=== PATIENT | female | born 1925 | race Caucasian/White ===

== ENCOUNTER 2016-09-12 13:45 | Inpatient (IN) | payer OTHER, BC ==
[2016-09-12] MEDS ORDERED: IPRATROPIUM/ALBUTEROL 3 ML DEYVIAL IH ONE (13:56)
--- NOTE | 2016-09-12 13:57 | EDPHY ---
H & P Time Seen by Provider: 09/12/16 13:46 HPI/ROS: CHIEF COMPLAINT: Weakness HISTORY OF PRESENT ILLNESS: Patient arrives from [facility] by EMS with a chief complaint of increasing weakness today. Symptoms moderate to severe and difficulty walking or standing. She is says this is associated with a diffuse headache which is unusual for her. Not thunderclap in onset or worst of life. Not associated with visual symptoms or neck pain or recent trauma. Weakness is not focal. REVIEW OF SYSTEMS: Eye: no change in vision ENT: no sore throat Cardiac: no chest pain or syncope Pulmonary: no cough or SOB Abdomen: no vomiting, diarrhea, abdominal pain Musculoskeletal: no back pain Skin: no rash Neuro: As in HPI Constitutional: no fever : no urinary symptoms A comprehensive 10 point review of systems is otherwise negative aside from elements mentioned in the history of present illness. PAST MEDICAL HISTORY: History and physical dated 12/10/2015 reviewed by myself. Includes rheumatoid arthritis on Remicade, IVC thrombus, depression, urinary retention, asthma, mild dementia. Right total knee arthroplasty, left total hip arthroplasty. Social history: No smoking or alcohol General Appearance: Alert and conversant, cooperative. Eyes: No scleral icterus. ENT, Mouth: Normal mucous membranes. No external evidence of head or neck swelling, but normal range of motion of the neck without meningeal signs. Respiratory: Slight expiratory wheezing but speaks in full sentences, no focal lung sounds. Cardiovascular: Regular rate and rhythm. Gastrointestinal: Abdomen is soft and non tender. Neurological: Alert and oriented x3. Normally conversant. Face symmetric, normal movement and sensation in all extremities. She can lift each leg independently off the bed and has good sales person strength bilaterally. Skin: Warm and dry, no rashes. Musculoskeletal: No peripheral edema and no joint swelling. No calf tenderness but she has significant ulnar deviation in both hands from her arthritis. Psychiatric: Not agitated. Emergency Department course/MDM: Chest x-ray, nebulizer, head CT, labs and EKG, urinalysis. Patient was offered medication for her headache but she declined. 1535: Results discussed with the patient, blood pressure 182/127. Nicardipine drip ordered with goal systolic 140-160 after discussion with admitting neurosurgeon Dr. Hudson 1700: 176/87 on nicardipine, seen by Neurosurgery in the emergency department, still awake and talking. Smoking Status: Former smoker Constitutional: Initial Vital Signs Temperature (C) 36.6 C 09/12/16 13:56 Heart Rate 91 09/12/16 13:56 Respiratory Rate 17 09/12/16 13:56 Blood Pressure 201/118 H 09/12/16 13:56 O2 Sat (%) 94 09/12/16 13:56 O2 Delivery Mode Room Air Allergies/Adverse Reactions: latex Allergy (Verified 12/10/15 13:59) mirtazapine Allergy (Verified 12/10/15 13:59) naproxen [From Naprosyn] Allergy (Verified 12/10/15 13:59) penicillin V potassium [From Pen-Vee K] Allergy (Verified 12/10/15 13:59) Rash Penicillins Allergy (Verified 12/31/15 14:11) potassium [From Potassimin] Allergy (Verified 12/31/15 14:11) shellfish derived Allergy (Verified 12/10/15 13:59) Home Medications: Medication Instructions Recorded Albuterol Sulfate [PROVENTIL HFA] 1 - 2 puffs IH Q4H PRN 04/19/15 Cyanocobalamin [Vitamin B12 (*)] 500 mcg PO DAILY@12 04/19/15 Methotrexate Sodium [Rheumatrex] 12.5 mg PO Q7D 04/19/15 Rivastigmine Tartrate [Exelon] 6 mg PO BID 04/19/15 Tramadol HCl 50 - 100 mg PO BID PRN 04/19/15 inFLIXimab [Remicade Inj 100 mg 100 mg IV .[id number] 04/19/15 (*)] Cholecalciferol Vit D3 [Vitamin D3 1,000 units PO HS 11/02/15 (*)] Docusate Sodium [Colace 100 MG (*)] 100 mg PO HS PRN 11/02/15 Acetaminophen [Tylenol ES 500 mg 1,000 mg PO Q8 #0 tab 11/06/15 (*)] Propylene Glycol/Peg 400 [SYSTANE 1 drop EACHEYE Q4 PRN 12/10/15 0.3-0.4% EYE DROPS] Herbals/Supplements -Info Only 1 ea PO DAILY 09/12/16 Esopus-3 Fatty Acids [Fish Oil 1000 1,000 mg PO DAILY 09/12/16 mg (*)] Medical Decision Making - Diagnostics EKG Interpretation: 12-lead EKG interpreted by me; official reading is in trace master. My interpretation is sinus rhythm rate 79 with borderline left axis. Imaging: Chest x-ray personally reviewed and interpreted by myself does not show infiltrate or CHF. CT head personally reviewed and interpreted discussed with Dr. Andres 1526 shows acute left frontal intracranial hemorrhage. Differential Diagnosis: Differential diagnosis considered for weakness including but not limited to electrolyte abnormality, urinary tract infection, CVA, intracranial bleed or mass, anemia, and infectious causes. Critical Care Time: Critical care time spent by me, Dr. Benson, exclusively with the care of this patient was 30 minutes, exclusive of PA or EDISCOVERY PROJECT MANAGER time and exclusive of separate procedures. The organ system at risk was neurologic and I ordered multiple diagnostic studies, discussion with admitting neurosurgeon, intravenous nicardipine for hypertension control to stabilize the patient and prevent worsening of the patient's condition. - Data Points Laboratory Results: Laboratory Results 09/12/16 13:49 09/12/16 13:49 09/12/16 09/12/16 09/12/16 14:25 13:49 13:49 WBC RBC Hgb Hct MCV MCH MCHC RDW Plt Count MPV Neut % (Auto) Lymph % (Auto) [place] % (Auto) Eos % (Auto) Baso % (Auto) Nucleat RBC Rel Count Absolute Neuts (auto) Absolute Lymphs (auto) Absolute Monos (auto) Absolute Eos (auto) Absolute Basos (auto) Absolute Nucleated RBC Immature Gran % Immature Gran # D-Dimer 4.24 ug/mLFEU H ug/mLFEU (0.00-0.50) Sodium 136 mEq/L mEq/L (134-144) Potassium 4.2 mEq/L mEq/L (3.5-5.2) Chloride 103 mEq/L mEq/L (97-110) Carbon Dioxide 23 mEq/l mEq/l (22-31) Anion Gap 10 mEq/L mEq/L (8-16) BUN 32 mg/dL H mg/dL (7-23) Creatinine 0.9 mg/dL mg/dL (0.6-1.0) Estimated GFR 59 Glucose 112 mg/dL H mg/dL (70-100) Calcium 9.5 mg/dL mg/dL (8.5-10.4) Troponin I < 0.012 ng/mL ng/mL (0-0.034) Urine Color PALE YELLOW Urine Appearance CLEAR Urine pH 7.0 (5.0-7.5) Ur Specific [place] 1.008 (1.002-1.030) Urine Protein NEGATIVE (NEGATIVE) Urine Ketones TRACE H (NEGATIVE) Urine Blood 1+ H (NEGATIVE) Urine Nitrate NEGATIVE (NEGATIVE) Urine Bilirubin NEGATIVE (NEGATIVE) Urine Urobilinogen NEGATIVE EU EU (0.2-1.0) Ur Leukocyte Esterase NEGATIVE (NEGATIVE) Urine RBC 1-3 /hpf /hpf (0-3) Urine WBC 1-3 /hpf /hpf (0-3) Ur Epithelial Cells TRACE /lpf /lpf (NONE-1+) Ur Culture Indicated? NOT INDICATED (NI) Urine Glucose NEGATIVE (NEGATIVE) 09/12/16 13:49 WBC 7.69 10^3/uL 10^3/uL (3.80-9.50) RBC 4.39 10^6/uL 10^6/uL (4.18-5.33) Hgb 13.3 g/dL g/dL (12.6-16.3) Hct 40.6 % % (38.0-47.0) MCV 92.5 fL fL (81.5-99.8) MCH 30.3 pg pg (27.9-34.1) MCHC 32.8 g/dL g/dL (32.4-36.7) RDW 14.6 % % (11.5-15.2) Plt Count 205 10^3/uL 10^3/uL (150-400) MPV 10.3 fL fL (8.7-11.7) Neut % (Auto) 77.2 % H % (39.3-74.2) Lymph % (Auto) 16.3 % % (15.0-45.0) [place] % (Auto) 5.6 % % (4.5-13.0) Eos % (Auto) 0.1 % L % (0.6-7.6) Baso % (Auto) 0.5 % % (0.3-1.7) Nucleat RBC Rel Count 0.0 % % (0.0-0.2) Absolute Neuts (auto) 5.94 10^3/uL 10^3/uL (1.70-6.50) Absolute Lymphs (auto) 1.25 10^3/uL 10^3/uL (1.00-3.00) Absolute Monos (auto) 0.43 10^3/uL 10^3/uL (0.30-0.80) Absolute Eos (auto) 0.01 10^3/uL L 10^3/uL (0.03-0.40) Absolute Basos (auto) 0.04 10^3/uL 10^3/uL (0.02-0.10) Absolute Nucleated RBC 0.00 10^3/uL 10^3/uL (0-0.01) Immature Gran % 0.3 % % (0.0-1.1) Immature Gran # 0.02 10^3/uL 10^3/uL (0.00-0.10) D-Dimer Sodium Potassium Chloride Carbon Dioxide Anion Gap BUN Creatinine Estimated GFR Glucose Calcium Troponin I Urine Color Urine Appearance Urine pH Ur Specific [place] Urine Protein Urine Ketones Urine Blood Urine Nitrate Urine Bilirubin Urine Urobilinogen Ur Leukocyte Esterase Urine RBC Urine WBC Ur Epithelial Cells Ur Culture Indicated? Urine Glucose Medications Given: Discontinued Medications Albuterol/Ipratropium (Duoneb) 3 ml IH EDNOW ONE Stop: 09/12/16 13:57 Last Admin: 09/12/16 14:13 Dose: 3 ml Nicardipine/Sodium Chloride (Cardene 0.1 Mg/Ml (Premix)) 200 mls @ 0 mls/hr IV EDNOW ONE; Titrate PRN Reason: Protocol Stop: 09/12/16 15:43 Last Admin: 09/12/16 16:53 Dose: 200 mls Departure - Departure Disposition: [facility] Clinical Impression: Frontal intracranial hemorrhage Condition: Serious
[2016-09-12 14:05] LABS: % IMMATURE GRANULYOCYTES 0.3 % (0.0-1.1); ABSOLUTE IMMATURE GRANULOCYTES 0.02 10^3/uL (0.00-0.10); ADD DIFF? NO; ADD MORPH? NO; ADD SCAN? NO; ATYPICAL LYMPHOCYTE FLAG 10 (0-99); FRAGMENT RBC FLAG 0 (0-99); HEMATOCRIT 40.6 % (38.0-47.0); HEMOGLOBIN 13.3 g/dL (12.6-16.3); LEFT SHIFT FLG 0 (0-99); LIPEMIA HEMOLYSIS FLAG 80 (0-99); MEAN CELL HEMOGLOBIN 30.3 pg (27.9-34.1); MEAN CELL HEMOGLOBIN CONCENTR. 32.8 g/dL (32.4-36.7); MEAN CELL VOLUME 92.5 fL (81.5-99.8); MEAN PLATELET VOLUME 10.3 fL (8.7-11.7); PLATELET CLUMPS FLAG 0 (0-99); PLATELET COUNT 205 10^3/uL (150-400); RED BLOOD CELL COUNT 4.39 10^6/uL (4.18-5.33); RED CELL DISTRIBUTION WIDTH 14.6 % (11.5-15.2)
[2016-09-12 14:19] LABS: ANION GAP 10 mEq/L (8-16); CALCIUM 9.5 mg/dL (8.5-10.4); CARBON DIOXIDE 23 mEq/l (22-31); CHLORIDE 103 mEq/L (97-110); CREATININE 0.9 mg/dL (0.6-1.0); GLOMERULAR FILTRATION RATE 59; GLUCOSE 112 mg/dL (70-100); POTASSIUM 4.2 mEq/L (3.5-5.2); SODIUM 136 mEq/L (134-144)
[2016-09-12 14:29] LABS: TROPONIN I < 0.012 ng/mL (0-0.034)
[2016-09-12 14:35] LABS: COLOR PALE YELLOW; LEUKOCYTE ESTERASE,URINE NEGATIVE (NEGATIVE); NITRITE,URINE NEGATIVE (NEGATIVE)
--- NOTE | 2016-09-12 15:16 | CPEKG ---
Heart Rate: 79 RR Interval: 759 P-R Interval: 156 QRSD Interval: 98 QT Interval: 408 QTC Interval: 468 P Stewart: 62 QRS Stewart: -23 T Wave Stewart: 42 EKG Severity - OTHERWISE NORMAL ECG - EKG Impression: SINUS RHYTHM EKG Impression: BORDERLINE LEFT AXIS DEVIATION Electronically Signed By: Jose Roberto Benson 12-Sep-2016 16:10:33
[2016-09-12] MEDS ORDERED: niCARdipine/NACL 200 ML IV ONE (15:42)
[2016-09-12] MEDS ORDERED: NS 1,000 ML IV SCH (16:30)
[2016-09-12] MEDS ORDERED: niCARdipine/NACL 200 ML IV SCH (16:30)
--- NOTE | 2016-09-12 16:33 | GHP ---
[f rep st] HISTORY AND PHYSICAL DATE OF ADMISSION: 09/12/2016 CHIEF COMPLAINT: Headache. HISTORY OF PRESENT ILLNESS: The patient is an 89-year-old female with a past medical history signif icant for rheumatoid arthritis. She just was not quite feeling well this morning and presented to [facility] emergency department with a generalized headache. A head CT was obtained and this showed a right frontal intracerebral hemorrhage. Neurosurgical consultation was requested. She currently complai ns of a headache. This is associated with some mild nausea. She has not had any vomiting, weakness , bowel or bladder problems, or ataxia. PAST MEDICAL HISTORY: 1. Rheumatoid arthritis. 2. Reactive airway disease. MEDICATIONS: Prior to admission are methotrexate, Remicade, tramadol, Exelon, albuterol inhaler, an d [id number] supplements. ALLERGIES: Penicillin which causes a rash as a child. FAMILY HISTORY: The patient has no family history of an intracranial hemorrhage. SOCIAL HISTORY: The patient is , with 4 grown children. She is a former smoker but does not drink and does not use recreational drugs. REVIEW OF SYSTEMS: Negative. PHYSICAL EXAM: GENERAL: Patient is an 89-year-old female lying in bed, in no apparent distress. H EAD, EYES, EARS, NOSE, AND THROAT: Negative to drainage. EXTREMITIES: Friendly, warm, and dry. NEURO LOGIC: Patient is awake, alert, oriented x4. Pupils equal, round, reactive to light. Extraocular motions are intact. There is no evidence of facial droop. Tongue and uvula are midline. Spinal ac cess muscles are intact. Her motor strength is 5/5 in her arms and legs. Her sensation is grossly intact to light touch in her arms and legs. Deep tendon reflexes are 1+ out of 4 in the bilateral b iceps, triceps, brachioradialis, patellar, and Achilles. There is a negative Nadia with no clonu s. DIAGNOSTIC STUDIES: A head CT without contrast shows a small left frontal intraparenchymal hemorrha ge which measures approximately 1.5 cm. This is on the cortical surface of the left frontal lobe. There is no evidence of extra-axial fluid collections. There is no evidence of hydrocephalus. IMPRESSION: This is an 89-year-old female admitted with a headache, who has a left frontal intra-ax ial hemorrhage. She is neurologically stable. PLAN: All the above discussed in detail with the patient and her son. This patient was seen by Dr. Almanza in the emergency department. At this point in time, she will be admitted to the ICU for observation. We will put her on Cardene to keep her systolic blood pressure below 160. We will have her work with Physical Therapy and Occupational Therapy. The patient will undergo a repeat he ad CT without contrast in the morning. Please call with any neurological changes. /[id number]/MODL
[2016-09-12] MEDS ORDERED: traMADol 50 MG TAB PO PRN (18:03)
[2016-09-12] MEDS ORDERED: DOCUSATE SODIUM 100 MG CAP PO PRN (18:03)
[2016-09-12] MEDS ORDERED: TEARS/DEXTRAN 70/HYPROMELLOSE 15 ML OPHT.BTL EACHEYE PRN (18:12)
[2016-09-12] MEDS ORDERED: ALBUTEROL 60 PUFFS/8 GM MDI IH PRN (18:15)
[2016-09-12] MEDS ORDERED: METHOTREXATE 2.5 MG TAB PO SCH (18:30)
[2016-09-12 19:53] VITALS: TEMP 97.9
[2016-09-12] MEDS ORDERED: CHOLECALCIFEROL VIT D3 1,000 UNITS TAB PO SCH (21:00)
[2016-09-13 06:13] LABS: % IMMATURE GRANULYOCYTES 0.2 % (0.0-1.1); ABSOLUTE IMMATURE GRANULOCYTES 0.01 10^3/uL (0.00-0.10); ADD DIFF? NO; ADD MORPH? NO; ADD SCAN? NO; ATYPICAL LYMPHOCYTE FLAG 10 (0-99); FRAGMENT RBC FLAG 0 (0-99); HEMATOCRIT 40.9 % (38.0-47.0); HEMOGLOBIN 13.6 g/dL (12.6-16.3); LEFT SHIFT FLG 0 (0-99); LIPEMIA HEMOLYSIS FLAG 80 (0-99); MEAN CELL HEMOGLOBIN 30.2 pg (27.9-34.1); MEAN CELL HEMOGLOBIN CONCENTR. 33.3 g/dL (32.4-36.7); MEAN CELL VOLUME 90.9 fL (81.5-99.8); MEAN PLATELET VOLUME 9.9 fL (8.7-11.7); PLATELET CLUMPS FLAG 0 (0-99); PLATELET COUNT 196 10^3/uL (150-400); RED CELL DISTRIBUTION WIDTH 14.5 % (11.5-15.2)
[2016-09-13 06:16] LABS: ANION GAP 9 mEq/L (8-16); CARBON DIOXIDE 25 mEq/l (22-31); CHLORIDE 106 mEq/L (97-110); CREATININE 0.7 mg/dL (0.6-1.0); GLOMERULAR FILTRATION RATE > 60; GLUCOSE 83 mg/dL (70-100); POTASSIUM 4.4 mEq/L (3.5-5.2); SODIUM 140 mEq/L (134-144)
[2016-09-13 08:17] VITALS: BP 118/72; PULSE 87; RESP 15; O2SAT 92
--- NOTE | 2016-09-13 09:06 | NEUSURGPN ---
Assessment/Plan: A: 89 yo F admitted with 1.5cm left frontal ICH Plan: -Neuro intact, stable -PT/OT/FRUIT PICKER -CT head done this AM and appears table, report pending -OK to transfer to floor/back to SNF -Needs outpatient f/u in [address] Mendez with repeat HCT -D/w Dr Mendez -Call NS with any issues Subjective: Pt resting in bed, c/o slight headache. Objective: AAOx3 NAD EOMi No droop MAEx4 Motor 5/5 BUE/BLE +LT Neurosurgery Physical Exam - Vitals, I&O, Labs I and O 09/12/16 09/13/16 09/14/16 05:59 05:59 05:59 Intake Total 294 Output Total 2275 Balance -1981 Weight 59.4 kg Intake: Oral (ml) 250 IV Infused (ml) 44 niCARdipine/NACL 200 ml @ 44 Titrate IV CONT MARIBEL Rx#: [id number] Output: Urine (ml) 2275 Bedpan 1325 Other: Intake Quantity Yes Sufficient Number of Voids Bedpan 1 Vital Signs Temp Pulse Resp BP Pulse Ox 36.6 C 87 15 118/72 92 09/12/16 19:50 09/13/16 08:00 09/13/16 08:00 09/13/16 08:00 09/13/16 08:00 Laboratory Results 09/13/16 05:50 09/13/16 05:50 ICD10 Worksheet Patient Problems: Problems Problem Status Onset Acute pancreatitis Acute Elevated troponin Acute Intertrochanteric fracture of left hip Acute Nausea & vomiting Acute Syncope Acute
[2016-09-13] MEDS ORDERED: CYANO/VITAMIN B12 1000 MCG TAB PO SCH (12:00)
--- NOTE | 2016-09-13 16:06 | PDIAF ---
- Diagnosis Code Status: Full Code - Medication Management Discharge Medications: Medications to Continue on Transfer Albuterol Sulfate [PROVENTIL HFA] 1 - 2 puffs IH Q4H PRN 04/19/15 [Last Taken Unknown] Cyanocobalamin [Vitamin B12 (*)] 500 mcg PO DAILY@12 04/19/15 [Last Taken ] Methotrexate Sodium [Rheumatrex] 12.5 mg PO Q7D 04/19/15 [Last Taken 09/05/16] Rivastigmine Tartrate [Exelon] 6 mg PO BID 04/19/15 [Last Taken 09/12/16 09:00] Tramadol HCl 50 - 100 mg PO BID PRN 04/19/15 [Last Taken 09/12/16 09:00] inFLIXimab [Remicade Inj 100 mg (*)] 100 mg IV .[id number] 04/19/15 [Last Taken 12/21] Cholecalciferol Vit D3 [Vitamin D3 (*)] 1,000 units PO HS 11/02/15 [Last Taken 12/10/15] Docusate Sodium [Colace 100 MG (*)] 100 mg PO HS PRN 11/02/15 [Last Taken Unknown] Acetaminophen [Tylenol ES 500 mg (*)] 1,000 mg PO Q8 #0 tab 11/06/15 [Last Taken Unknown] Propylene Glycol/Peg 400 [SYSTANE 0.3-0.4% EYE DROPS] 1 drop EACHEYE Q4 PRN 11/19 [Last Taken Unknown] Herbals/Supplements -Info Only 1 ea PO DAILY 09/12/16 [Last Taken Unknown] Discharge Medications: Refer to the Discharge Home Medication list for PRN reason. - Orders Services needed: Home Care, Physical Therapy, Occupational Therapy Home Care Face to Face: I certify that this patient was under my care and that I had the required [id number] encounter meeting the encounter requirements on the discharge day. My findings support the fact that the patient is homebound as defined in CMS Chapter 7 Medicare Benefits Manual 30.1.1, The condition of the patient is such that there exists a normal inability to leave home and consequently, leaving home would require a considerable and taxing effort. Diet Recommendation: no restrictions on diet Diet Texture: Regular Texture Diet [place]: Not applicable - Follow Up Care Current Providers and Referrals: Patient,NotPresent [Unknown] - As per Instructions Juancarlos Almanza MD [Medical Doctor] - (Follow up in 1 week with repeat HCT)
[2016-11-09] MEDS ORDERED: INFLIXIMAB 100 MG IV SCH (09:00)
== END 2016-09-13 11:49 | disposition home or self-care (01) | DRG 66 ==
LOC: EDUNIT# → F2N 17:12
PROVIDERS: ADMIT Neurological Surgery; ATTEND Neurological Surgery
DX: I61.1 Nontraumatic intracerebral hemorrhage in hemisphere, cortical (principal); M06.9 Rheumatoid arthritis, unspecified; Z79.899 Other long term (current) drug therapy; J45.909 Unspecified asthma, uncomplicated; Z96.651 Presence of right artificial knee joint; Z96.642 Presence of left artificial hip joint; Z87.891 Personal history of nicotine dependence
CPT/HCPCS: 97161-GP; 97165-GO; G8978-GP-CI; G8979-GP-CI; G8980-GP-CI; G8987-GO-CI; G8988-GO-CI; G8989-GO-CI

== ENCOUNTER → 2016-09-18 | Outpatient (CLI) | payer OTHER, BC | LOC: CIMAGING 11:14 | PROVIDERS: ATTEND Physician Assistant Surgical | DX: I61.8 Other nontraumatic intracerebral hemorrhage (principal) | CPT/HCPCS: 70450-PO ==

== ENCOUNTER 2016-10-07 02:11 | Emergency (ER) | payer OTHER, BC ==
[2016-10-07 02:25] VITALS: RESP 16; TEMP 98.1
[2016-10-07 03:26] LABS: % IMMATURE GRANULYOCYTES 0.3 % (0.0-1.1); ABSOLUTE IMMATURE GRANULOCYTES 0.02 10^3/uL (0.00-0.10); ADD DIFF? NO; ADD MORPH? NO; ADD SCAN? NO; ATYPICAL LYMPHOCYTE FLAG 10 (0-99); FRAGMENT RBC FLAG 0 (0-99); HEMATOCRIT 42.7 % (38.0-47.0); LEFT SHIFT FLG 0 (0-99); LIPEMIA HEMOLYSIS FLAG 80 (0-99); MEAN CELL HEMOGLOBIN 30.6 pg (27.9-34.1); MEAN CELL HEMOGLOBIN CONCENTR. 32.8 g/dL (32.4-36.7); MEAN CELL VOLUME 93.4 fL (81.5-99.8); MEAN PLATELET VOLUME 10.8 fL (8.7-11.7); PLATELET CLUMPS FLAG 10 (0-99); PLATELET COUNT 186 10^3/uL (150-400); RED BLOOD CELL COUNT 4.57 10^6/uL (4.18-5.33); RED CELL DISTRIBUTION WIDTH 14.6 % (11.5-15.2)
[2016-10-07 03:29] LABS: COLOR PALE YELLOW; LEUKOCYTE ESTERASE,URINE NEGATIVE (NEGATIVE); NITRITE,URINE NEGATIVE (NEGATIVE)
[2016-10-07 03:38] LABS: ALANINE AMINOTRANSFERASE 31 IU/L (9-52); ALBUMIN 3.9 g/dL (3.5-5.0); ALKALINE PHOSPHATASE 62 IU/L (38-126); ANION GAP 10 mEq/L (8-16); ASPARTATE AMINOTRANSFERASE 38 IU/L (14-46); CALCIUM 9.2 mg/dL (8.5-10.4); CARBON DIOXIDE 21 mEq/l (22-31); CHLORIDE 105 mEq/L (97-110); CREATININE 0.8 mg/dL (0.6-1.0); GLOMERULAR FILTRATION RATE > 60; GLUCOSE 98 mg/dL (70-100); POTASSIUM 4.1 mEq/L (3.5-5.2); SODIUM 136 mEq/L (134-144); TOTAL PROTEIN 7.6 g/dL (6.3-8.2)
--- NOTE | 2016-10-07 04:44 | EDPHY ---
H & P Stated Complaint: HEADACHE AND WEAKNESS TONIGHT Time Seen by Provider: 10/07/16 02:14 HPI/ROS: HPI The patient presents with headache which began earlier this evening a few hours ago. It is frontal, achy in nature, does not radiate, is moderate in severity. It is associated with nausea without any vomiting. It feels like the headache that she had that brought her into the hospital with an intracranial hemorrhage on September 12. She denies any recent trauma, vomiting. She did have an elevated blood pressure tonight which is unusual for her. Her blood pressures have been normal since she left the hospital. She is brought in by ambulance. REVIEW OF SYSTEMS Constitutional: No fever, no chills. Eyes: No discharge. ENT: No sore throat. Cardiovascular: No chest pain, no palpitations. Respiratory: No cough, no shortness of breath. Gastrointestinal: No abdominal pain, no vomiting. Genitourinary: No hematuria. Musculoskeletal: No back pain. Skin: No rashes. Neurological: +headache. PMHx: Intracranial hemorrhage, rheumatoid arthritis Soc Hx: [facility] General Appearance: Alert, no distress Eyes: Pupils equal and round no pallor or injection ENT, Mouth: Mucous membranes moist Respiratory: There are no retractions, lungs are clear to auscultation Cardiovascular: Regular rate and rhythm Gastrointestinal: Abdomen is soft and non-tender, no masses, bowel sounds normal Neurological: A&O, cranial nerves 2-12 intact, 5/5 strength in upper and lower extremities which is symmetric Skin: Warm and dry, no rashes Musculoskeletal: Neck is supple non tender Extremities: symmetrical, full range of motion Psychiatric: Patient is oriented X 3, there is no agitation Source: Patient Exam Limitations: No limitations - Personal History Current Tetanus/Diphtheria Vaccine: Yes Current Tetanus Diphtheria and Acellular Pertussis (TDAP): Yes - Medical/Surgical History Hx Asthma: Yes Hx Chronic Respiratory Disease: No Hx Diabetes: No Hx Cardiac Disease: No Hx Renal Disease: No Hx Cirrhosis: No Hx Alcoholism: No Hx HIV/AIDS: No Hx Splenectomy or Spleen Trauma: No Other PMH: Chondrocalcinosis, Depression, Osteoporosis, Arthritis, Urinary Retention, Inguinal Hernia, Constipation, Asthma, PANCREATITIS, FX LEFT ELBOW, RHEUMATOID, UTIs, L ankle fx, r knee hardware, broken left hip 10/2015, TIA 2016 - Social History Smoking Status: Former smoker Constitutional: Initial Vital Signs Temperature (C) 36.7 C 10/07/16 02:15 Heart Rate 70 10/07/16 02:15 Respiratory Rate 16 10/07/16 02:15 Blood Pressure 191/95 H 10/07/16 02:15 O2 Sat (%) 95 10/07/16 02:15 O2 Delivery Mode Room Air Allergies/Adverse Reactions: latex Allergy (Verified 10/07/16 02:25) mirtazapine Allergy (Verified 10/07/16 02:25) naproxen [From Naprosyn] Allergy (Verified 10/07/16 02:25) penicillin V potassium [From Pen-Vee K] Allergy (Verified 10/07/16 02:25) Rash Penicillins Allergy (Verified 10/07/16 02:25) potassium [From Potassimin] Allergy (Verified 10/07/16 02:25) shellfish derived Allergy (Verified 10/07/16 02:25) Home Medications: Medication Instructions Recorded Albuterol Sulfate [PROVENTIL HFA] 1 - 2 puffs IH Q4H PRN 04/19/15 Cyanocobalamin [Vitamin B12 (*)] 500 mcg PO DAILY@12 04/19/15 Methotrexate Sodium [Rheumatrex] 12.5 mg PO Q7D 04/19/15 Rivastigmine Tartrate [Exelon] 6 mg PO BID 04/19/15 Tramadol HCl 50 - 100 mg PO BID PRN 04/19/15 inFLIXimab [Remicade Inj 100 mg 100 mg IV .[id number] 04/19/15 (*)] Cholecalciferol Vit D3 [Vitamin D3 1,000 units PO HS 11/02/15 (*)] Docusate Sodium [Colace 100 MG (*)] 100 mg PO HS PRN 11/02/15 Acetaminophen [Tylenol ES 500 mg 1,000 mg PO Q8 #0 tab 11/06/15 (*)] Propylene Glycol/Peg 400 [SYSTANE 1 drop EACHEYE Q4 PRN 12/10/15 0.3-0.4% EYE DROPS] Herbals/Supplements -Info Only 1 ea PO DAILY 09/12/16 Medical Decision Making Differential Diagnosis: This is an 89 year old female who presents brought in by ambulance from assisted living for a headache which has been present for the last several hours associated with nausea. She has a normal neurologic examination. She was recently admitted for a frontal intracranial hemorrhage and has a similar headache. Differential diagnosis includes recurrent intracranial hemorrhage, tension type headache, brain mass, migraine headache. In the emergency room the patient was monitored with complete resolution of her headache. CT scan was obtained which showed resolving intracranial hemorrhage. Her blood pressure did remain elevated while she was in the emergency room. She is currently not on any antihypertensives because blood pressure improved spontaneously and blood pressures have been in the 120s over 70s for the most part. She is not confused and does not have any mental status changes, thus I believe hypertensive encephalopathy is unlikely. Given that she feels well, I plan to discharge her back to her assisted living. I have explained that she will need to check her blood pressures there and follow up with her PMD in the next few days to see if if initiation of antihypertensive is warranted. She is in agreement with this plan. - Data Points Laboratory Results: Laboratory Results 10/07/16 02:23 10/07/16 02:23 10/07/16 10/07/16 10/07/16 02:45 02:23 02:23 WBC 7.83 10^3/uL 10^3/uL (3.80-9.50) RBC 4.57 10^6/uL 10^6/uL (4.18-5.33) Hgb 14.0 g/dL g/dL (12.6-16.3) Hct 42.7 % % (38.0-47.0) MCV 93.4 fL fL (81.5-99.8) MCH 30.6 pg pg (27.9-34.1) MCHC 32.8 g/dL g/dL (32.4-36.7) RDW 14.6 % % (11.5-15.2) Plt Count 186 10^3/uL 10^3/uL (150-400) MPV 10.8 fL fL (8.7-11.7) Neut % (Auto) 56.5 % % (39.3-74.2) Lymph % (Auto) 29.8 % % (15.0-45.0) [place] % (Auto) 11.2 % % (4.5-13.0) Eos % (Auto) 1.8 % % (0.6-7.6) Baso % (Auto) 0.4 % % (0.3-1.7) Nucleat RBC Rel Count 0.0 % % (0.0-0.2) Absolute Neuts (auto) 4.43 10^3/uL 10^3/uL (1.70-6.50) Absolute Lymphs (auto) 2.33 10^3/uL 10^3/uL (1.00-3.00) Absolute Monos (auto) 0.88 10^3/uL H 10^3/uL (0.30-0.80) Absolute Eos (auto) 0.14 10^3/uL 10^3/uL (0.03-0.40) Absolute Basos (auto) 0.03 10^3/uL 10^3/uL (0.02-0.10) Absolute Nucleated RBC 0.00 10^3/uL 10^3/uL (0-0.01) Immature Gran % 0.3 % % (0.0-1.1) Immature Gran # 0.02 10^3/uL 10^3/uL (0.00-0.10) Sodium 136 mEq/L mEq/L (134-144) Potassium 4.1 mEq/L mEq/L (3.5-5.2) Chloride 105 mEq/L mEq/L (97-110) Carbon Dioxide 21 mEq/l L mEq/l (22-31) Anion Gap 10 mEq/L mEq/L (8-16) BUN 28 mg/dL H mg/dL (7-23) Creatinine 0.8 mg/dL mg/dL (0.6-1.0) Estimated GFR > 60 Glucose 98 mg/dL mg/dL (70-100) Calcium 9.2 mg/dL mg/dL (8.5-10.4) Total Bilirubin 1.0 mg/dL mg/dL (0.1-1.4) AST 38 IU/L IU/L (14-46) ALT 31 IU/L IU/L (9-52) Alkaline Phosphatase 62 IU/L IU/L (38-126) Total Protein 7.6 g/dL g/dL (6.3-8.2) Albumin 3.9 g/dL g/dL (3.5-5.0) Urine Color PALE YELLOW Urine Appearance CLEAR Urine pH 7.0 (5.0-7.5) Ur Specific [place] 1.009 (1.002-1.030) Urine Protein NEGATIVE (NEGATIVE) Urine Ketones TRACE H (NEGATIVE) Urine Blood NEGATIVE (NEGATIVE) Urine Nitrate NEGATIVE (NEGATIVE) Urine Bilirubin NEGATIVE (NEGATIVE) Urine Urobilinogen NEGATIVE EU EU (0.2-1.0) Ur Leukocyte Esterase NEGATIVE (NEGATIVE) Ur Culture Indicated? NOT INDICATED (NI) Urine Glucose NEGATIVE (NEGATIVE) Departure - Departure Disposition: Home, Routine, Self-Care Clinical Impression: Headache, Elevated blood pressure reading Condition: Good Instructions: Hypertension (ED) Additional Instructions: Your blood pressure was elevated on your visit today. Because of this you should follow up with your doctor in the next 1-2 days. You can take Tylenol for your headache as needed. Please return to the emergency room if you're worse in any way. Referrals: Marietta Hdez MD [Primary Care Provider] - As per Instructions
[2016-10-07 07:07] VITALS: BP 147/92; PULSE 76; O2SAT 95
== END 2016-10-07 06:50 | disposition home or self-care (01) ==
LOC: EDUNIT#
DX: R51 Headache (principal); R03.0 Elevated blood-pressure reading, without diagnosis of hypertension; J45.909 Unspecified asthma, uncomplicated; Z87.891 Personal history of nicotine dependence; Z91.040 Latex allergy status

== ENCOUNTER → 2016-10-14 | Outpatient (CLI) | payer OTHER, BC | LOC: FIMAGING 09:27 | PROVIDERS: ATTEND Internal Medicine Endocrinology, Diabetes & Metabolism | DX: Z13.820 Encounter for screening for osteoporosis (principal); M81.0 Age-related osteoporosis without current pathological fracture ==

== ENCOUNTER 2016-10-27 05:18 | Observation (INO) | payer OTHER, BC ==
[2016-10-27] MEDS ORDERED: SILVER NITRATE APPLICATOR 1 APPL TP ONE ×2 (05:22→05:48)
[2016-10-27] MEDS ORDERED: PHENYLEPHRINE 0.5% NASAL 15 ML SPRAY ONE (05:22)
[2016-10-27] MEDS ORDERED: OXYMETAZOLINE 30 ML NASAL SPRAY ONE (05:23)
[2016-10-27] MEDS ORDERED: LIDOCAINE 2% 5 ML SDV ONE (05:40)
[2016-10-27] MEDS ORDERED: LIDOCAINE 2% 100 MG/5 ML SYR IVP ONE (05:48)
[2016-10-27] MEDS ORDERED: OXYMETAZOLINE 30 ML NASAL SPRAY EACHNARE ONE (05:48)
[2016-10-27] MEDS ORDERED: ONDANSETRON 4 MG/2 ML VIAL ONE (06:06)
[2016-10-27] MEDS ORDERED: NS 1,000 ML IV ONE (06:12)
[2016-10-27] MEDS ORDERED: ONDANSETRON 4 MG/2 ML VIAL IVP ONE (06:12)
--- NOTE | 2016-10-27 06:25 | EDPHY ---
H & P Stated Complaint: epistaxis since 329; Neosynephrine by EMS Time Seen by Provider: 10/27/16 05:25 HPI/ROS: CHIEF COMPLAINT: Nose bleed HISTORY OF PRESENT ILLNESS: This is an 89-year-old female with a history of rheumatoid arthritis on methotrexate and a recent intracranial hemorrhage for which she was hospitalized on September 12, 2016. She arrives today via EMS with a nose bleed. She reports bleeding from the right nostril. It has been ongoing for the last couple of hours. She received Thuan-Synephrine EN route and a nasal clamp was placed. She denies dizziness or lightheadedness. She is not experiencing chest pain or shortness of breath. She reports frequent nose bleeds that usually resolve spontaneously. She has not had recent nasal trauma. She is not taking anticoagulant medications. She has no known history of coagulopathy. REVIEW OF SYSTEMS: A ten point review of systems was performed and is negative with the exception of the items mentioned in the HPI. Source: Patient, EMS Exam Limitations: No limitations - Medical/Surgical History Hx Asthma: Yes Hx Chronic Respiratory Disease: No Hx Diabetes: No Hx Cardiac Disease: No Hx Renal Disease: No Hx Cirrhosis: No Hx Alcoholism: No Hx HIV/AIDS: No Hx Splenectomy or Spleen Trauma: No Other PMH: 1. Intracranial hemorrhage September 2016. 2. Rheumatoid arthritis on methotrexate. 3. Reactive airway disease. 4. Depression. 5. Inguinal hernia. 6. Left total hip arthroplasty. 7. R total knee replacement - Social History Smoking Status: Former smoker Alcohol Use: None Drug Use: None Additional Social History: She lives in assisted living at the [facility]. She is . She has 4 children. - Physical Exam Exam: General Appearance: Alert. Vital signs reviewed. BP 170/106. Eyes: Pupils equal and round, no conjunctival injection, no discharge. Anicteric. ENT, Mouth: Mucous membranes are moist, no oropharyngeal erythema or edema. Streaks of blood posterior oropharynx. Clamp in place--clots in right naris. Neck: No lymphadenopathy, supple. Respiratory: Lungs are clear to auscultation; no wheezes, rales, or rhonchi. Cardiovascular: Regular rate and rhythm; no murmur, rub, or gallop. Gastrointestinal: Abdomen is soft and nontender, no masses or organomegaly, bowel sounds normal. Skin: Warm and dry, no rashes on exposed skin, normal color. Neurological: Alert and oriented. Moving all four extremities easily and equally. Facial expressions symmetric. Tongue midline. LANDY. EOMI. Psychiatric: Normal affect. Constitutional: Initial Vital Signs Temperature (C) 36.4 C 10/27/16 05:25 Heart Rate 63 10/27/16 05:25 Respiratory Rate 18 10/27/16 05:25 Blood Pressure 170/106 H 10/27/16 05:25 O2 Sat (%) 93 10/27/16 05:25 O2 Delivery Mode Room Air Allergies/Adverse Reactions: latex Allergy (Verified 10/07/16 02:25) mirtazapine Allergy (Verified 10/07/16 02:25) naproxen [From Naprosyn] Allergy (Verified 10/07/16 02:25) penicillin V potassium [From Pen-Vee K] Allergy (Verified 10/07/16 02:25) Rash Penicillins Allergy (Verified 10/07/16 02:25) potassium [From Potassimin] Allergy (Verified 10/07/16 02:25) shellfish derived Allergy (Verified 10/07/16 02:25) Home Medications: Medication Instructions Recorded Albuterol Sulfate [PROVENTIL HFA] 1 - 2 puffs IH Q4H PRN 04/19/15 Methotrexate Sodium [Rheumatrex] 12.5 mg PO PRECIADO 04/19/15 Rivastigmine Tartrate [Exelon] 6 mg PO BID 04/19/15 Tramadol HCl 50 - 100 mg PO BID PRN 04/19/15 Cholecalciferol Vit D3 [Vitamin D3 1,000 units PO HS 11/02/15 (*)] Propylene Glycol/Peg 400 [SYSTANE 1 drop EACHEYE Q4 PRN 12/10/15 0.3-0.4% EYE DROPS] Herbals/Supplements -Info Only 1 ea PO DAILY 09/12/16 Acetaminophen [Tylenol ES 500 mg 500 mg PO DAILY@10/27/16 (*)] Cyanocobalamin [Vitamin B12 (*)] 500 mcg PO DAILY@12 10/27/16 Denosumab [Prolia] 60 mg SQ .QMONTHS 10/27/16 Lisinopril [Zestril 2.5 mg (*)] 2.5 mg PO DAILY 04/23/17 Mometasone Furoate 1 keren TP DAILY PRN 10/27/16 inFLIXimab [Remicade Inj 100 mg 100 mg IV .[id number] 10/28/16 (*)] Medical Decision Making Procedures: Nasal packing. Indication: Anterior epistaxis. 2% lidocaine by vaporization was applied to the right naris. Clots were removed with suctioning. She also blew her nose to remove clots. I was unable to visualize an area of bleeding. An anterior rhinostat was placed. At some point thereafter she was noted to be hypoxic with RA oxygen saturation in the mid 80s and then she had a brief syncopal episode. I was called to the room and the rhino stat was removed. She awakened quickly. Subsequent blood pressure was 134/64. She continued with slow oozing from the right naris. Merocel packing was placed. Pulse ox hovers around 87% on room air. ED Course/Re-evaluation: Hypoxia and brief syncopal episode with nasal packing in place. No the packing was removed and replaced with a smaller Merocel packing. Pulse ox remains around 87% on room air. She will be admitted to a monitored bed for continued observation. Differential Diagnosis: Syncope including but not limited to vasovagal syncope, arrhythmia, dehydration , and blood loss. I considered a differential diagnosis of epistaxis including but not limited to hypertension, coagulopathy, anticoagulant medications, nasal trauma, and dry air /mucous membranes. - Data Points Laboratory Results: Laboratory Results 10/27/16 06:10 10/27/16 06:10 Medications Given: Discontinued Medications Acetaminophen (Tylenol) 500 mg PO DAILY@12 MARIBEL Stop: 04/25/17 11:59 Last Admin: 10/27/16 11:26 Dose: 500 mg Azithromycin (Zithromax) 500 mg PO DAILY MARIBEL PRN Reason: Protocol Stop: 11/26/16 08:59 Last Admin: 10/28/16 08:34 Dose: 500 mg Cholecalciferol (Vitamin D) 1,000 units PO HS MARIBEL Stop: 04/25/17 20:59 Last Admin: 10/27/16 20:28 Dose: 1,000 units Sodium Chloride (Ns) 1,000 mls @ 0 mls/hr IV ONCE ONE PRN Reason: Wide Open Stop: 10/27/16 06:13 Last Admin: 10/27/16 06:15 Dose: 1,000 mls Lidocaine HCl (Lidocaine Hcl 2%) 2 mg IVP EDNOW ONE Stop: 10/27/16 05:49 Last Admin: 10/27/16 05:54 Dose: 2 mg Lisinopril (Zestril) 2.5 mg PO DAILY MARIBEL Stop: 04/26/17 08:59 Last Admin: 10/28/16 08:34 Dose: 2.5 mg Methotrexate (Rheumatrex) 12.5 mg PO PRECIADO MARIBEL Stop: 04/25/17 09:59 Last Admin: 10/27/16 10:49 Dose: 12.5 mg Miscellaneous Medication (Rivastigmine Tartrate [Exelon]) 6 mg PO BID MARIBEL Stop: 04/25/17 20:59 Last Admin: 10/28/16 08:42 Dose: Not Given Ondansetron HCl (Zofran) 4 mg IVP EDNOW ONE Stop: 10/27/16 06:13 Last Admin: 10/27/16 06:12 Dose: 4 mg Oxymetazoline HCl (Afrin Nasal Comfort) 2 sprays EACHNARE EDNOW ONE Stop: 10/27/16 05:49 Last Admin: 10/27/16 05:54 Dose: 2 spray Silver Nitrate/Potassium Nitrate (Silver Nitrate Applicator) 1 each TP EDNOW ONE Stop: 10/27/16 05:49 Last Admin: 10/27/16 05:55 Dose: 1 each Vitamin B Complex (Vitamin B12) 500 mcg PO DAILY@12 MARIBEL Stop: 04/25/17 11:59 Last Admin: 10/27/16 11:27 Dose: 500 mcg Departure - Departure Disposition: [facility] Acute Clinical Impression: Epistaxis Syncope Qualifiers: Syncope type: unspecified Qualified Code(s): R55 - Syncope and collapse Condition: Good
[2016-10-27 06:27] LABS: % IMMATURE GRANULYOCYTES 0.3 % (0.0-1.1); ABSOLUTE IMMATURE GRANULOCYTES 0.03 10^3/uL (0.00-0.10); ADD DIFF? NO; ADD MORPH? NO; ADD SCAN? NO; ATYPICAL LYMPHOCYTE FLAG 20 (0-99); FRAGMENT RBC FLAG 0 (0-99); HEMATOCRIT 40.4 % (38.0-47.0); LEFT SHIFT FLG 0 (0-99); LIPEMIA HEMOLYSIS FLAG 80 (0-99); MEAN CELL HEMOGLOBIN 29.5 pg (27.9-34.1); MEAN CELL HEMOGLOBIN CONCENTR. 32.2 g/dL (32.4-36.7); MEAN CELL VOLUME 91.6 fL (81.5-99.8); MEAN PLATELET VOLUME 10.3 fL (8.7-11.7); PLATELET CLUMPS FLAG 0 (0-99); PLATELET COUNT 196 10^3/uL (150-400); RED BLOOD CELL COUNT 4.41 10^6/uL (4.18-5.33); RED CELL DISTRIBUTION WIDTH 14.5 % (11.5-15.2)
[2016-10-27 06:30] LABS: ANION GAP 7 mEq/L (8-16); CALCIUM 9.5 mg/dL (8.5-10.4); CARBON DIOXIDE 24 mEq/l (22-31); CHLORIDE 105 mEq/L (97-110); GLOMERULAR FILTRATION RATE 52; GLUCOSE 109 mg/dL (70-100); POTASSIUM 4.8 mEq/L (3.5-5.2); PROTIME(PATIENT) 13.1 SEC (12.0-15.0); SODIUM 136 mEq/L (134-144)
[2016-10-27 06:31] LABS: APTT 28.5 SEC (23.0-38.0)
[2016-10-27 06:42] LABS: TROPONIN I < 0.012 ng/mL (0-0.034)
[2016-10-27] MEDS ORDERED: ONDANSETRON 4 MG/2 ML VIAL IVP PRN (07:10)
[2016-10-27] MEDS ORDERED: oxyCODONE IR 5 MG TAB PO PRN (07:10)
[2016-10-27] MEDS ORDERED: ONDANSETRON DISINTEGRATING 4 MG TAB PO PRN (07:10)
[2016-10-27] MEDS ORDERED: ACETAMINOPHEN 325 MG TAB PO PRN (07:10)
--- NOTE | 2016-10-27 07:25 | CPEKG ---
Heart Rate: 61 RR Interval: 984 P-R Interval: 144 QRSD Interval: 96 QT Interval: 428 QTC Interval: 431 P [place]: 60 QRS [place]: -23 T Wave [place]: 36 EKG Severity - OTHERWISE NORMAL ECG - EKG Impression: SINUS RHYTHM EKG Impression: BORDERLINE LEFT AXIS DEVIATION Electronically Signed By: Mauro Triana 27-Oct-2016 14:47:52
--- NOTE | 2016-10-27 07:27 | PDGENHP ---
History and Physical - Chief Complaint epistaxis - History of Present Illness Patient is an 89 year old female with rheumatoid arthritis, on methotrexate, mild intermittent asthma, recently diagnosed spontaneous intracranial hemorrhage who presented to the ED from her assisted living after experiencing a nosebleed. Patient reports the nosebleed started shortly after she went to bed , at around 1130pm-midnight, described as gushing bright red blood. She was able to stop the bleeding with direct pressure and then went back to sleep. She then awoke again at about 4am with recurrent bright red epistaxis, however, this time she was unable to stop the bleeding with pressure so she called for assistance. During this time, she denies any associated dizziness/ lightheadedness, headache, chest pain, nausea or abdominal pain. EMS was called and she was transported to the [facility] for further evaluation. She was given NS phenylephrine en route. On arrival to the ED, patient was afebrile and hemodynamically stable. She had active bleeding on arrival, and bilateral nasal rocket packing was placed with cessation of the bleeding. Over the course of her ED stay, patient had a witnessed syncopal event, where she became unresponsive for about 30-45 seconds. The bilateral nasal packings were pulled and patient immediately regained full consciousness. She did not recall the event, but denied any chest pain, palpitations or shortness of breath. Given this event, labs were drawn and she is being admitted for further evaluation. History Information - Allergies/Home Medication List Allergies/Adverse Reactions: latex Allergy (Verified 10/07/16 02:25) mirtazapine Allergy (Verified 10/07/16 02:25) naproxen [From Naprosyn] Allergy (Verified 10/07/16 02:25) penicillin V potassium [From Pen-Vee K] Allergy (Verified 10/07/16 02:25) Rash Penicillins Allergy (Verified 10/07/16 02:25) potassium [From Potassimin] Allergy (Verified 10/07/16 02:25) shellfish derived Allergy (Verified 10/07/16 02:25) Home Medications: Albuterol Sulfate [PROVENTIL HFA] 1 - 2 puffs IH Q4H PRN 04/19/15 [Last Taken Unknown] Cyanocobalamin [Vitamin B12 (*)] 500 mcg PO DAILY@12 04/19/15 [Last Taken ] Methotrexate Sodium [Rheumatrex] 12.5 mg PO Q7D 04/19/15 [Last Taken 09/05/16] Rivastigmine Tartrate [Exelon] 6 mg PO BID 04/19/15 [Last Taken 09/12/16 09:00] Tramadol HCl 50 - 100 mg PO BID PRN 04/19/15 [Last Taken 09/12/16 09:00] inFLIXimab [Remicade Inj 100 mg (*)] 100 mg IV .[id number] 04/19/15 [Last Taken 12/21] Cholecalciferol Vit D3 [Vitamin D3 (*)] 1,000 units PO HS 11/02/15 [Last Taken 12/10/15] Docusate Sodium [Colace 100 MG (*)] 100 mg PO HS PRN 11/02/15 [Last Taken Unknown] Propylene Glycol/Peg 400 [SYSTANE 0.3-0.4% EYE DROPS] 1 drop EACHEYE Q4 PRN 11/19 [Last Taken Unknown] Herbals/Supplements -Info Only 1 ea PO DAILY 09/12/16 [Last Taken Unknown] CLOBETASOL PROPIONATE 10/27/16 [Last Taken Unknown] FOLIC ACID 10/27/16 [Last Taken Unknown] Gas Relief 10/27/16 [Last Taken Unknown] Vitamin D3 10/27/16 [Last Taken Unknown] Zofran 10/27/16 [Last Taken Unknown] I have personally reviewed and updated: family history, medical history, social history, surgical history - Past Medical History Additional medical history: rheumatoid arthritis. mild intermittent asthma. recent spontaneous intracranial hemorrhage (09/2016, resolved on repeat CT 10/2016 ) - Surgical History Additional surgical history: hysterectomy. L hip ORIF. R TKR. inguinal hernia repairs. bowel obstruction surgery - Family History Positive for: non-pertinent - Social History Smoking Status: Never smoked Alcohol Use: None Drug Use: None Additional social history: Patient currently lives alone in assisted living facility, uses walker to ambulate. Has 4 children, one son living in [place]. Review of Systems ROS: 10pt was reviewed & negative except for what was stated in HPI & below Physical Exam Temp Pulse Resp BP Pulse Ox 36.4 C 63 18 170/106 H 98 10/27/16 05:25 10/27/16 05:25 10/27/16 05:25 10/27/16 05:25 10/27/16 06:40 O2 (L/minute) 3 Constitutional: no apparent distress, appears nourished, not in pain Eyes: PERRL, anicteric sclera, EOMI Ears, Nose, Mouth, Throat: hearing normal, ears appear normal, no oral mucosal ulcers, other (R nostril nasal packing in place, no active bleeding noted) Cardiovascular: regular rate and rhythym, no murmur, rub, or gallop, pulses symmetric bilaterally, No JVD, No edema Peripheral Pulses: 2+: dorsalis-pedis (R), dorsalis-pedis (L) Respiratory: no respiratory distress, no rales or rhonchi, clear to auscultation Gastrointestinal: normoactive bowel sounds, soft, non-tender abdomen, no palpable masses Genitourinary: no bladder fullness, no bladder tenderness Skin: warm, normal color, no rashes or abrasions, no fluctuance, no induration, No mottled Musculoskeletal: other (diffuse generative changes of RA on bilateral upper extremities) Neurologic: AAOx3, sensation intact bilaterally, CN II-XII Intact, No weakness, No numbness, No facial droop Psychiatric: interacting appropriately, not anxious, not encephalopathic, thought process linear Lab Data & Imaging Review 10/27/16 06:10 10/27/16 06:10 WBC 9.74 10^3/uL (3.80-9.50) H 10/27/16 06:10 RBC 4.41 10^6/uL (4.18-5.33) 10/27/16 06:10 Hgb 13.0 g/dL (12.6-16.3) 10/27/16 06:10 Hct 40.4 % (38.0-47.0) 10/27/16 06:10 MCV 91.6 fL (81.5-99.8) 10/27/16 06:10 MCH 29.5 pg (27.9-34.1) 10/27/16 06:10 MCHC 32.2 g/dL (32.4-36.7) L 10/27/16 06:10 RDW 14.5 % (11.5-15.2) 10/27/16 06:10 Plt Count 196 10^3/uL (150-400) 10/27/16 06:10 MPV 10.3 fL (8.7-11.7) 10/27/16 06:10 Neut % (Auto) 50.8 % (39.3-74.2) 10/27/16 06:10 Lymph % (Auto) 36.6 % (15.0-45.0) 10/27/16 06:10 Ness % (Auto) 10.2 % (4.5-13.0) 10/27/16 06:10 Eos % (Auto) 1.5 % (0.6-7.6) 10/27/16 06:10 Baso % (Auto) 0.6 % (0.3-1.7) 10/27/16 06:10 Nucleat RBC Rel Count 0.0 % (0.0-0.2) 10/27/16 06:10 Absolute Neuts (auto) 4.95 10^3/uL (1.70-6.50) 10/27/16 06:10 Absolute Lymphs (auto) 3.56 10^3/uL (1.00-3.00) H 10/27/16 06:10 Absolute Monos (auto) 0.99 10^3/uL (0.30-0.80) H 10/27/16 06:10 Absolute Eos (auto) 0.15 10^3/uL (0.03-0.40) 10/27/16 06:10 Absolute Basos (auto) 0.06 10^3/uL (0.02-0.10) 10/27/16 06:10 Absolute Nucleated RBC 0.00 10^3/uL (0-0.01) 10/27/16 06:10 Immature Gran % 0.3 % (0.0-1.1) 10/27/16 06:10 Immature Gran # 0.03 10^3/uL (0.00-0.10) 10/27/16 06:10 PT 13.1 SEC (12.0-15.0) 10/27/16 06:10 INR 1.00 (0.83-1.16) 10/27/16 06:10 APTT 28.5 SEC (23.0-38.0) 10/27/16 06:10 Sodium 136 mEq/L (134-144) 10/27/16 06:10 Potassium 4.8 mEq/L (3.5-5.2) 10/27/16 06:10 Chloride 105 mEq/L (97-110) 10/27/16 06:10 Carbon Dioxide 24 mEq/l (22-31) 10/27/16 06:10 Anion Gap 7 mEq/L (8-16) L 10/27/16 06:10 BUN 39 mg/dL (7-23) H 10/27/16 06:10 Creatinine 1.0 mg/dL (0.6-1.0) 10/27/16 06:10 Estimated GFR 52 10/27/16 06:10 Glucose 109 mg/dL (70-100) H 10/27/16 06:10 Calcium 9.5 mg/dL (8.5-10.4) 10/27/16 06:10 Troponin I < 0.012 ng/mL (0-0.034) 10/27/16 06:10 Assessment & Plan Assessment: Patient is an 89 year old female with RA, recent L frontal intracranial hemorrhage who presents to the ED with complaint of epistaxis. While being evaluated and treated in the ED, patient had a witnessed syncopal episode. Plan: # anterior epistaxis Right nostril anterior epistaxis present on arrival, bleeding has ceased with nasal packing provided in ED. Will given azithromycin for infection prophylaxis , given PCN allergy. Will continue nasal packing, with outpatient ENT follow up for removal, inpatient consult if recurrent bleeding occurs. # syncope ED staff witnessed an episode of unresponsiveness of approximately 30 seconds. Suspect vasovagal episode related to the nasal packing, as no obvious arrhythmia noted on telemetry, patient regained full consciousness after bilateral nasal rockets were removed. Hemodynamics remain stable, troponin is negative, EKG is pending. Will trend cardiac enzymes, monitor EKGs and telemetry and monitor serial H/Hs. # rheumatoid arthritis Stable, will continue home meds. # recent intracranial hemorrhage This occurred on a 09/2016 admission. ED visit in early 10/[address] head that showed resolution of the hemorrhage. On presentation today, patient denies any headache, has nonfocal exam and stable VS. No indication to repeat head imaging at this time. # mild intermittent asthma Resp status stable, will provide nebs prn. # dispo: place in observation # gen: regular diet DVT ppx: low risk, obs DNR
[2016-10-27] MEDS: AZITHROMYCIN 250 MG TAB PO SCH (08:52)
[2016-10-27] MEDS ORDERED: ALBUTEROL INH PREPACK MDI TAKEHOME PRN (09:43)
[2016-10-27] MEDS ORDERED: MOMETASONE FUROATE TP PRN (09:43)
[2016-10-27] MEDS ORDERED: traMADol 50 MG TAB PO PRN (09:43)
[2016-10-27] MEDS ORDERED: CARBOXYMETHYLCELLULOSE 1% 0.4 ML DROPERETTE EACHEYE PRN (09:43)
[2016-10-27] MEDS ORDERED: INFLIXIMAB 100 MG IV SCH (09:45)
[2016-10-27] MEDS ORDERED: NON-FORMULARY NEW DRUG (Denosumab [Prolia] 60 MG) SQ SCH (09:45)
[2016-10-27] MEDS ORDERED: ALBUTEROL 60 PUFFS/8 GM MDI IH PRN (09:59)
[2016-10-27] MEDS ORDERED: METHOTREXATE 2.5 MG TAB PO SCH (10:00)
[2016-10-27] MEDS ORDERED: MOMETASONE FUROATE 15 GM CRTUBE TP PRN (10:00)
--- NOTE | 2016-10-27 11:34 | CPEKG ---
Heart Rate: 63 RR Interval: 952 P-R Interval: 144 QRSD Interval: 96 QT Interval: 408 QTC Interval: 418 P [place]: 57 QRS [place]: -17 T Wave [place]: 33 EKG Severity - OTHERWISE NORMAL ECG - EKG Impression: SINUS RHYTHM EKG Impression: BORDERLINE LEFT AXIS DEVIATION Electronically Signed By: Basilio Winchester 28-Oct-2016 08:38:26
[2016-10-27] MEDS ORDERED: CYANO/VITAMIN B12 1000 MCG TAB PO SCH (12:00)
[2016-10-27] MEDS ORDERED: ACETAMINOPHEN 500 MG TAB PO SCH (12:00)
[2016-10-27 12:32] LABS: % IMMATURE GRANULYOCYTES 0.2 % (0.0-1.1); ABSOLUTE IMMATURE GRANULOCYTES 0.01 10^3/uL (0.00-0.10); ADD DIFF? NO; ADD MORPH? NO; ADD SCAN? NO; ATYPICAL LYMPHOCYTE FLAG 20 (0-99); FRAGMENT RBC FLAG 0 (0-99); HEMATOCRIT 36.4 % (38.0-47.0); HEMOGLOBIN 11.6 g/dL (12.6-16.3); LEFT SHIFT FLG 0 (0-99); LIPEMIA HEMOLYSIS FLAG 80 (0-99); MEAN CELL HEMOGLOBIN 29.4 pg (27.9-34.1); MEAN CELL HEMOGLOBIN CONCENTR. 31.9 g/dL (32.4-36.7); MEAN CELL VOLUME 92.4 fL (81.5-99.8); MEAN PLATELET VOLUME 10.1 fL (8.7-11.7); PLATELET CLUMPS FLAG 0 (0-99); PLATELET COUNT 174 10^3/uL (150-400); RED BLOOD CELL COUNT 3.94 10^6/uL (4.18-5.33); RED CELL DISTRIBUTION WIDTH 14.1 % (11.5-15.2)
--- NOTE | 2016-10-27 12:34 | HOSPPROG ---
Hospitalist Progress Note Assessment/Plan: Patient is an 89 year old female with RA, recent L frontal intracranial hemorrhage who presents to the ED with complaint of epistaxis. While being evaluated and treated in the ED, patient had a witnessed syncopal episode. Plan: # anterior epistaxis Right nostril anterior epistaxis present on arrival, bleeding has ceased with nasal packing provided in ED. Will given azithromycin for infection prophylaxis , given PCN allergy. Will continue nasal packing, with outpatient ENT follow up for removal, inpatient consult if recurrent bleeding occurs. # syncope ED staff witnessed an episode of unresponsiveness of approximately 30 seconds. Suspect vasovagal episode related to the nasal packing, as no obvious arrhythmia noted on telemetry, patient regained full consciousness after bilateral nasal rockets were removed. Hemodynamics remain stable, troponin is negative, EKG is pending. Will trend cardiac enzymes, monitor EKGs and telemetry and monitor serial H/Hs. # rheumatoid arthritis Stable, will continue home meds. # recent intracranial hemorrhage This occurred on a 09/2016 admission. ED visit in early 10/[address] head that showed resolution of the hemorrhage. On presentation today, patient denies any headache, has nonfocal exam and stable VS. No indication to repeat head imaging at this time. # mild intermittent asthma Resp status stable, will provide nebs prn. # dispo: place in observation # gen: regular diet DVT ppx: low risk, obs DNR Subjective: Feeling well. Tired. No pain or issues. Objective: Vital Signs Temp Pulse Resp BP Pulse Ox 36.5 C 66 12 150/68 H 90 L 10/27/16 08:11 10/27/16 08:11 10/27/16 08:11 10/27/16 08:11 10/27/16 08:11 10/26/16 10/27/16 10/28/16 05:59 05:59 05:59 Intake Total 1000 Balance 1000 PT 13.1 SEC (12.0-15.0) 10/27/16 06:10 INR 1.00 (0.83-1.16) 10/27/16 06:10 - Physical Exam Constitutional: appears nourished, not in pain, chronically ill appearing Eyes: PERRL, EOMI Ears, Nose, Mouth, Throat: moist mucous membranes, hearing normal Cardiovascular: No JVD, No edema Respiratory: no respiratory distress, reduced air movement Gastrointestinal: No tenderness, No ascites Skin: warm, normal color Musculoskeletal: no joint effusions, generalized weakness Psychiatric: not anxious, not encephalopathic ICD10 Worksheet Patient Problems: Problems Problem Status Onset Nausea & vomiting Acute Acute pancreatitis Acute Intertrochanteric fracture of left hip Acute Syncope Acute Elevated troponin Acute Epistaxis Acute Syncope Acute
--- NOTE | 2016-10-27 13:44 | ECHO ---
[id number] + + [address] : : [place] [address] : : [phone] + + Adult Echocardiographic Report + + :Name: BEN BROWN Study Date: 10/27/2016 12:05 PM : : Hospital Admission Number: [id number] : :: 1925 Gender: Female : :Age: 89 yrs Race: WH : :Reason For Study: Eval LV Fx : :History: Syncope : + + MMode/2D Measurements \T\ Calculations IVSd: 0.98 cm LVIDd: 4.0 cm FS: 42.6 % LVOT diam: 1.9 cm LVPWd: 1.1 cm LVIDs: 2.3 cm EDV(Teich): 70.0 ml ESV(Teich): 18.0 ml LVOT area: 2.8 cm2 EF(Teich): 74.2 % Normal Measurement Values: + + :LVIDd (3.5-5.7cm) IVSd (0.6-1.1cm) LVPWd (0.6-1.1cm) Aortic Root (2.0-3.7cm)Left Atrium (1.5-4.0cm): :LV Vol(d) (76-115ml) LV Vol(s) (29-48ml) Ejec Fraction (50-65%)PV Chencho (0.6- 1.2m/s) TV Chencho (0.4-1.0m/s) : :MV E Chencho (0.8-1.0m/s)MV A Chen[place] (0.3-1.0m/s)LVOT Chen[place] (0.7-1.2m/s) Asc Ao Chencho ( 0.9-1.8m/s) : + + Doppler Measurements \T\ Calculations Ao V2 max: LV V1 max: SV(LVOT): TR max chencho: 152.0 cm/sec 92.3 cm/sec 69.9 ml 253.8 cm/sec Ao max P.2 mmHg LV V1 max PG: TR max P.8 mmHg Ao mean P.1 mmHg 3.4 mmHg RAP systole: Ao V2 mean: LV V1 mean P.0 mmHg 142.5 cm/sec 2.0 mmHg RVSP(TR): 30.8 mmHg Ao V2 VTI: 45.7 cm LV V1 mean: SIERRA(I,D): 1.5 cm2 67.3 cm/sec SIERRA(V,D): 1.7 cm2 LV V1 VTI: 24.7 cm Left Ventricle The left ventricle is normal in size. There is mild concentric left ventricular hypertrophy. The left ventricle is hyperdynamic. Ejection Fraction = 70-75%%. No regional wall motion abnormalities noted. Right Ventricle The right ventricular systolic function is normal. Mitral Valve The mitral valve leaflets appear thickened, but open well. There is mild mitral annular calcification. There is no evidence of mitral valve prolapse. Tricuspid Valve The tricuspid valve is normal in structure and function. There is trace tricuspid regurgitation. Right ventricular systolic pressure is 31mmHg. Aortic Valve The aortic valve is trileaflet. The aortic valve opens well. Moderate Aortic Valve Calcification. There is no aortic stenosis. There is no aortic insufficiency. Pulmonic Valve The pulmonic valve is not well visualized. Pericardium/Pleural There is no pericardial effusion. Conclusion This is a limited echo to evaluate LV function. The aortic valve is trileaflet. The aortic valve opens well. There is trace tricuspid regurgitation. Right ventricular systolic pressure is 31mmHg. Ejection Fraction = 70-75%%. The left ventricle is normal in size. Final Reading Physician: Bryant Rubio electronically signed on 10/27/2016 01:42 PM Ordering Physician: Joellen Ortiz Performed By: Diego Chaudhari, CS
[2016-10-27] MEDS: RIVASTIGMINE TARTRATE 6 MG PO SCH (20:28)
[2016-10-27] MEDS ORDERED: CHOLECALCIFEROL VIT D3 1,000 UNITS TAB PO SCH (21:00)
[2016-10-27] MEDS ORDERED: RIVASTIGMINE TARTRATE 6 MG PO SCH (21:00)
[2016-10-28 04:57] LABS: HEMATOCRIT 34.4 % (38.0-47.0)
[2016-10-28 07:53] VITALS: BP 143/72; PULSE 67; RESP 19; TEMP 98.6; O2SAT 90
[2016-10-28] MEDS: AZITHROMYCIN 250 MG TAB PO SCH (08:34)
[2016-10-28] MEDS: RIVASTIGMINE TARTRATE 6 MG PO SCH (08:42)
[2016-10-28] MEDS ORDERED: Herbals/Supplements -Info Only PO SCH (09:00)
[2016-10-28] MEDS ORDERED: LISINOPRIL 5 MG TAB PO SCH (09:00)
[2016-10-28] MEDS ORDERED: LISINOPRIL 2.5 MG TAB PO SCH (09:00)
--- NOTE | 2016-10-28 14:22 | GDS ---
[f rep st] DISCHARGE SUMMARY DISCHARGE DIAGNOSES: 1. Anterior epistaxis. 2. Syncope. 3. Rheumatoid arthritis. 4. Recent intracranial hemorrhage. 5. Mild intermittent asthma. STUDIES AND PROCEDURES DONE: Echocardiogram. PHYSICAL EXAM: GENERAL: The patient is alert. VITAL SIGNS: Afebrile at 37, pulse 67, respiratory rate 19, blood pressure is 143/72. She is saturating 90% on room air. I saw and evaluated the pat ient on the day of discharge. HOSPITAL COURSE: The patient is an 89-year-old female who presented to the emergency room with comp laints of nosebleed. She was evaluated and diagnosed with: 1. Anterior epistaxis. During this hospitalization, she received a Rhino Rocket, which appears to have caused her bleeding to subside. She had removed this independently prior to disposition, and h as been informed that she should follow up in the outpatient setting with Ear, Nose, and Throat, as well as return to the emergency room if her bleeding should recur and be uncontrolled. She is in ag reement with this plan. 2. Syncope. This is likely secondary to the patient having bilateral nasal packing placed. An ech ocardiogram was performed that had minimal abnormalities. She has had no further syncopal episodes since this occurrence and is felt to not warrant any further evaluation. 3. Rheumatoid arthritis. This is stable, and she will continue her home medications. 4. Recent intracranial hemorrhage. She does not appear to have any further advancement of this con dition. She denies any pain or headaches. She also does not have any focal deficits representing t his. She will continue to follow in the outpatient setting as previously recommended. 5. Mild intermittent asthma. This is stable at the time of this hospitalization. DISPOSITION: The patient will be discharged home with her son independently. There are no pending studies. DISCHARGE MEDICATIONS: Please refer to EMR form. I have not provided the patient any prescriptions at the time of disposition. I have not discontinued any of her previously prescribed home medicati ons. FOLLOWUP: Primary care physician, Dr. Marietta Hdez, as well as Ear, Nose, and Throat provider of her choice. /[id number]/MODL
== END 2016-10-28 12:08 | disposition home or self-care (01) ==
LOC: EDUNIT# → F3E 08:03
PROVIDERS: ADMIT Internal Medicine; ATTEND Internal Medicine
PROC: 2Y41X5Z Packing of Nasal Region using Packing Material (ICD-10-PCS; principal; 2016-10-27)
DX: R04.0 Epistaxis (principal); R55 Syncope and collapse; R09.02 Hypoxemia; M06.9 Rheumatoid arthritis, unspecified; Z96.651 Presence of right artificial knee joint; Z96.642 Presence of left artificial hip joint
CPT/HCPCS: 30901; 93005; 93308; 96374; 97165; 99285; G0378; G8987; G8988; J2405

== ENCOUNTER 2016-10-29 19:29 | Inpatient (IN) | payer OTHER, BC ==
[2016-10-29] MEDS ORDERED: NS 1,000 ML IV ONE (19:47)
--- NOTE | 2016-10-29 19:53 | EDPHY ---
H & P Time Seen by Provider: 10/29/16 19:41 HPI/ROS: CHIEF COMPLAINT: Low back pain HISTORY OF PRESENT ILLNESS: Patient is an 89-year-old female with history of arthritis on methotrexate who comes to the emergency department complaining of low back pain. She was discharged yesterday after being admitted for epistaxis complicated by syncopal event in the emergency department. She did not have any back pain when she was discharged yesterday. Today she began complaining of low back pain. She told her family that she could not get out of bed. She was given 50 mcg of fentanyl by EMS EN route. She states that she is feeling somewhat better. She is able to move her legs and lift them off the bed. She does not have any bowel or bladder incontinence or retention. No abdominal pain. No flank pain. REVIEW OF SYSTEMS: Constitutional: denies: chills, fever, recent illness, recent injury EENTM: denies: blurred vision, double vision, nose congestion Respiratory: denies: cough, shortness of breath Cardiac: denies: chest pain, irregular heart rate, lightheadedness, palpitations Gastrointestinal/Abdominal: denies: abdominal pain, diarrhea, nausea, vomiting, blood streaked stools Genitourinary: denies: dysuria, frequency, hematuria, pain Musculoskeletal: See HPI Skin: denies: lesions, rash, jaundice, bruising Neurological: denies: headache, numbness, paresthesia, tingling, dizziness, weakness Hematologic/Lymphatic: denies: blood clots, easy bleeding, easy bruising Immunologic/allergic: denies: HIV/AIDS, transplant EXAM: GENERAL: Well-appearing, well-nourished and in no acute distress. HEAD: Atraumatic, normocephalic. EYES: Pupils equal round and reactive to light, extraocular movements intact, sclera anicteric, conjunctiva are normal. ENT: TMs normal, nares patent, oropharynx clear without exudates. Moist mucous membranes. NECK: Normal range of motion, supple without lymphadenopathy or JVD. LUNGS: Breath sounds clear to auscultation bilaterally and equal. No wheezes rales or rhonchi. HEART: Regular rate and rhythm without murmurs, rubs or gallops. ABDOMEN: Soft, nontender, normoactive bowel sounds. No guarding, no rebound. No masses appreciated. BACK: No CVA tenderness, mild tenderness to L4-5 region. Bilateral paraspinous pain but no tenderness. No swelling or deformity. EXTREMITIES: Normal range of motion, no pitting or edema. No clubbing or cyanosis. NEUROLOGICAL: Cranial nerves II through XII grossly intact. Normal speech, normal gait. 5/5 strength, normal movement in all extremities, normal sensation. The patient has normal reflexes in her lower extremities. No bowel or bladder abnormalities. No paresthesias or numbness. No radiation of her pain. PSYCH: Normal mood, normal affect. SKIN: Warm, dry, normal turgor, no visible rashes or lesions. Source: Patient, EMS, Old records Exam Limitations: No limitations - Medical/Surgical History Hx Asthma: Yes Hx Chronic Respiratory Disease: No Hx Diabetes: No Hx Cardiac Disease: No Hx Renal Disease: No Hx Cirrhosis: No Hx Alcoholism: No Hx HIV/AIDS: No Hx Splenectomy or Spleen Trauma: No Other PMH: 1. Intracranial hemorrhage September 2016. 2. Rheumatoid arthritis on methotrexate. 3. Reactive airway disease. 4. Depression. 5. Inguinal hernia. 6. Left total hip arthroplasty. 7. R total knee replacement - Family History Significant Family History: No pertinent family hx - Social History Smoking Status: Former smoker Alcohol Use: Sober Drug Use: None Constitutional: Initial Vital Signs Temperature (C) 37.9 C 10/29/16 19:50 Heart Rate 90 10/29/16 19:50 Respiratory Rate 20 10/29/16 19:50 Blood Pressure 180/90 H 10/29/16 19:50 O2 Sat (%) 88 L 10/29/16 19:50 Allergies/Adverse Reactions: latex Allergy (Verified 10/29/16 19:49) mirtazapine Allergy (Verified 10/29/16 19:49) naproxen [From Naprosyn] Allergy (Verified 10/29/16 19:49) penicillin V potassium [From Pen-Vee K] Allergy (Verified 10/29/16 19:49) Rash Penicillins Allergy (Verified 10/29/16 19:49) potassium [From Potassimin] Allergy (Verified 10/29/16 19:49) shellfish derived Allergy (Verified 10/29/16 19:49) Medical Decision Making - Diagnostics Imaging Results: Imaging Impressions Lumbar Spine CT 10/29/16 19:48 Impression: 1. No acute findings in the lumbar spine. 2. Multilevel degenerative change, with severe spinal canal narrowing at L3-L4 and L4-L5, slightly increased since 2015, poorly assessed on CT. If symptoms persist and clinical suspicion warrants, consider MRI. Findings discussed with Bahman Moulton M.D., on October 29, 2016 at 2039 hours. A Appliance Installer Notification test result has been communicated via the [employer] Critical Result system on 10/29/2016 20:43, Message ID [id number]. Imaging: Discussed imaging studies w/ call out operator Radiologist ED Course/Re-evaluation: 8:00 p.m. I spoke with the patient's son who arrived. He states that she began complaining of low back pain about 12-15 p.m. hours ago while lying in bed. She did not fall to the ground yesterday which she fainted. She was in bed when she syncoped. She has not had any known trauma recently. She does not have a history of back pain. At home she has been able to ambulate. She had pain sitting up and twisting her trunk and had trouble getting out of bed but once she was up was able to walk without difficulty. No bowel or bladder abnormalities. No recent fevers. 9:30 p.m. the patient continues to have significant low back pain with any type of movement. She is not able to roll over in bed. While lying in bed she is able to completely move her legs however. She has strong pulses. I do not suspect a vascular injury. I do not suspect a spinal cord injury. She feels better with Dilaudid but Has a very difficult time getting up. She is able to ambulate once she is up. Will admit her to the medical service for pain control and further workup. Differential Diagnosis: Partial list of the Differential diagnosis considered include but were not limited to; low back pain muscle spasm, radiculopathy, fracture and although unlikely based on the history and physical exam, I also considered infection, aneurysm, dissection, psoas abscess. I discussed these differential diagnoses and the plan with the patient as well as the usual and expected course. The patient understands that the diagnosis is provisional and that in medicine we are not always correct and that further workup is often warranted. Usual and customary warnings were given. All of the patient's questions were answered. The patient was instructed to return to the emergency department should the symptoms at all worsen or return, otherwise to followup with the physician as we discussed. - Data Points Laboratory Results: Laboratory Results 10/29/16 19:35 10/29/16 19:35 10/29/16 10/29/16 10/29/16 20:40 19:35 19:35 WBC RBC Hgb Hct MCV MCH MCHC RDW Plt Count MPV Neut % (Auto) Lymph % (Auto) Brown % (Auto) Eos % (Auto) Baso % (Auto) Nucleat RBC Rel Count Absolute Neuts (auto) Absolute Lymphs (auto) Absolute Monos (auto) Absolute Eos (auto) Absolute Basos (auto) Absolute Nucleated RBC Immature Gran % Immature Gran # PT 13.6 SEC SEC (12.0-15.0) INR 1.05 (0.83-1.16) APTT 30.1 SEC SEC (23.0-38.0) Sodium 134 mEq/L mEq/L (134-144) Potassium 4.2 mEq/L mEq/L (3.5-5.2) Chloride 100 mEq/L mEq/L (97-110) Carbon Dioxide 25 mEq/l mEq/l (22-31) Anion Gap 9 mEq/L mEq/L (8-16) BUN 21 mg/dL mg/dL (7-23) Creatinine 0.9 mg/dL mg/dL (0.6-1.0) Estimated GFR 59 Glucose 96 mg/dL mg/dL (70-100) Calcium 9.4 mg/dL mg/dL (8.5-10.4) Urine Color YELLOW Urine Appearance CLEAR Urine pH 7.0 (5.0-7.5) Ur Specific [place] 1.015 (1.002-1.030) Urine Protein NEGATIVE (NEGATIVE) Urine Ketones 1+ H (NEGATIVE) Urine Blood NEGATIVE (NEGATIVE) Urine Nitrate NEGATIVE (NEGATIVE) Urine Bilirubin NEGATIVE (NEGATIVE) Urine Urobilinogen NEGATIVE EU EU (0.2-1.0) Ur Leukocyte Esterase NEGATIVE (NEGATIVE) Ur Culture Indicated? NOT INDICATED (NI) Urine Glucose NEGATIVE (NEGATIVE) 10/29/16 19:35 WBC 10.10 10^3/uL H 10^3/uL (3.80-9.50) RBC 4.65 10^6/uL 10^6/uL (4.18-5.33) Hgb 14.2 g/dL g/dL (12.6-16.3) Hct 42.9 % % (38.0-47.0) MCV 92.3 fL fL (81.5-99.8) MCH 30.5 pg pg (27.9-34.1) MCHC 33.1 g/dL g/dL (32.4-36.7) RDW 14.4 % % (11.5-15.2) Plt Count 166 10^3/uL 10^3/uL (150-400) MPV 10.7 fL fL (8.7-11.7) Neut % (Auto) 86.2 % H % (39.3-74.2) Lymph % (Auto) 8.8 % L % (15.0-45.0) Brown % (Auto) 4.5 % % (4.5-13.0) Eos % (Auto) 0.0 % L % (0.6-7.6) Baso % (Auto) 0.2 % L % (0.3-1.7) Nucleat RBC Rel Count 0.0 % % (0.0-0.2) Absolute Neuts (auto) 8.71 10^3/uL H 10^3/uL (1.70-6.50) Absolute Lymphs (auto) 0.89 10^3/uL L 10^3/uL (1.00-3.00) Absolute Monos (auto) 0.45 10^3/uL 10^3/uL (0.30-0.80) Absolute Eos (auto) 0.00 10^3/uL L 10^3/uL (0.03-0.40) Absolute Basos (auto) 0.02 10^3/uL 10^3/uL (0.02-0.10) Absolute Nucleated RBC 0.00 10^3/uL 10^3/uL (0-0.01) Immature Gran % 0.3 % % (0.0-1.1) Immature Gran # 0.03 10^3/uL 10^3/uL (0.00-0.10) PT INR APTT Sodium Potassium Chloride Carbon Dioxide Anion Gap BUN Creatinine Estimated GFR Glucose Calcium Urine Color Urine Appearance Urine pH Ur Specific [place] Urine Protein Urine Ketones Urine Blood Urine Nitrate Urine Bilirubin Urine Urobilinogen Ur Leukocyte Esterase Ur Culture Indicated? Urine Glucose Medications Given: Discontinued Medications Hydromorphone HCl (Dilaudid) 0.5 mg IVP EDNOW ONE Stop: 10/29/16 20:58 Last Admin: 10/29/16 21:00 Dose: 0.5 mg Sodium Chloride (Ns) 1,000 mls @ 0 mls/hr IV ONCE ONE PRN Reason: Wide Open Stop: 10/29/16 19:48 Last Admin: 10/29/16 20:09 Dose: 1,000 mls Departure - Departure Disposition: [facility] Inpatient Acute Clinical Impression: Low back pain Qualifiers: Chronicity: acute Back pain laterality: midline Sciatica presence: without sciatica Qualified Code(s): M54.5 - Low back pain Condition: Fair
[2016-10-29 20:12] LABS: APTT 30.1 SEC (23.0-38.0); INR 1.05 (0.83-1.16); PROTIME(PATIENT) 13.6 SEC (12.0-15.0)
[2016-10-29 20:24] LABS: % IMMATURE GRANULYOCYTES 0.3 % (0.0-1.1); ABSOLUTE IMMATURE GRANULOCYTES 0.03 10^3/uL (0.00-0.10); ADD DIFF? NO; ADD MORPH? NO; ADD SCAN? NO; ATYPICAL LYMPHOCYTE FLAG 0 (0-99); FRAGMENT RBC FLAG 0 (0-99); HEMATOCRIT 42.9 % (38.0-47.0); HEMOGLOBIN 14.2 g/dL (12.6-16.3); LEFT SHIFT FLG 20 (0-99); LIPEMIA HEMOLYSIS FLAG 80 (0-99); MEAN CELL HEMOGLOBIN 30.5 pg (27.9-34.1); MEAN CELL HEMOGLOBIN CONCENTR. 33.1 g/dL (32.4-36.7); MEAN CELL VOLUME 92.3 fL (81.5-99.8); MEAN PLATELET VOLUME 10.7 fL (8.7-11.7); PLATELET CLUMPS FLAG 40 (0-99); PLATELET COUNT 166 10^3/uL (150-400); RED BLOOD CELL COUNT 4.65 10^6/uL (4.18-5.33); RED CELL DISTRIBUTION WIDTH 14.4 % (11.5-15.2)
[2016-10-29 20:26] LABS: ANION GAP 9 mEq/L (8-16); CALCIUM 9.4 mg/dL (8.5-10.4); CARBON DIOXIDE 25 mEq/l (22-31); CHLORIDE 100 mEq/L (97-110); CREATININE 0.9 mg/dL (0.6-1.0); GLOMERULAR FILTRATION RATE 59; GLUCOSE 96 mg/dL (70-100); POTASSIUM 4.2 mEq/L (3.5-5.2); SODIUM 134 mEq/L (134-144)
[2016-10-29] MEDS ORDERED: HYDROmorphONE/DILAUDID 1 MG/ML SYR ONE (20:53)
[2016-10-29] MEDS ORDERED: HYDROmorphONE/DILAUDID 1 MG/ML SYR IVP ONE (20:57)
[2016-10-29 21:18] LABS: COLOR YELLOW; LEUKOCYTE ESTERASE,URINE NEGATIVE (NEGATIVE); NITRITE,URINE NEGATIVE (NEGATIVE)
[2016-10-29] MEDS ORDERED: HYDROmorphONE/DILAUDID 1 MG/ML SYR IVP PRN (23:11)
[2016-10-29] MEDS ORDERED: ONDANSETRON 4 MG/2 ML VIAL IVP PRN (23:11)
[2016-10-29] MEDS ORDERED: ONDANSETRON DISINTEGRATING 4 MG TAB PO PRN (23:11)
[2016-10-29] MEDS ORDERED: ACETAMINOPHEN 500 MG TAB PO PRN (23:11)
--- NOTE | 2016-10-29 23:17 | PDGENHP ---
History and Physical - Chief Complaint low back and R hip pain - History of Present Illness Patient is an 89 year old female with rheumatoid arthritis, on methotrexate, mild intermittent asthma, recently diagnosed spontaneous intracranial hemorrhage who presented to the ED with complaint moderate to severe low back and right hip pain. Patient was recently admitted to the hospital for epistaxis and a syncopal episode, was discharged home on 10/28. Patient states that on the evening after discharge while lying in bed began experiencing tightness in her lower back. The following day (today) her pain had significantly intensified, throbbing in quality, nonradiating not associated with numbness, tingling, bowel or bladder incontinence. She was still able to ambulate, but when her son visited her this afternoon he saw her in significant pain so he decided to bring her to the ED for further evaluation. On arrival to the ED patient was afebrile hemodynamically stable. Labs were unremarkable and exam revealed she was neurovascularly intact. CT imaging of her low L-spine showed degenerative disc disease without evidence of impingement or fracture. she was then admitted to the hospital service for further management of her pain. History Information - Allergies/Home Medication List Allergies/Adverse Reactions: latex Allergy (Verified 10/29/16 19:49) mirtazapine Allergy (Verified 10/29/16 19:49) naproxen [From Naprosyn] Allergy (Verified 10/29/16 19:49) penicillin V potassium [From Pen-Vee K] Allergy (Verified 10/29/16 19:49) Rash Penicillins Allergy (Verified 10/29/16 19:49) potassium [From Potassimin] Allergy (Verified 10/29/16 19:49) shellfish derived Allergy (Verified 10/29/16 19:49) Home Medications: Acetaminophen [Tylenol 325mg (*)] 325 mg PO DAILY PRN 10/29/16 [Last Taken Unknown] Albuterol [Proventil Inhaler HFA (*)] 1 - 2 puffs IH Q4H PRN 10/29/16 [Last Taken Unknown] Cholecalciferol Vit D3 [Vitamin D3 (*)] 2,000 units PO DAILY 10/29/16 [Last Taken Unknown] Clobetasol Propionate 59 ml TP BID PRN 10/29/16 [Last Taken Unknown] Cyanocobalamin [Vitamin B12 (*)] 500 mcg PO DAILY 10/29/16 [Last Taken Unknown] Docusate Sodium [Colace Clear] 50 mg PO DAILY PRN 10/29/16 [Last Taken Unknown] FOLIC ACID 0.8 mg PO DAILY 10/29/16 [Last Taken Unknown] Methotrexate Sodium [Rheumatrex] 12.5 mg PO PRECIADO@0900 10/29/16 [Last Taken Unknown ] Multivitamins [Multivitamin (*)] 1 each PO DAILY 10/29/16 [Last Taken Unknown] Ondansetron Odt [Zofran Odt 4 mg (*)] 4 mg PO BID PRN 10/29/16 [Last Taken Unknown] Propylene Glycol/Peg 400/Pf [Systane 0.3-0.4% Eye Drops] 1 each OP DAILY PRN [Last Taken Unknown] Rivastigmine Tartrate [Rivastigmine] 6 mg PO BID 10/29/16 [Last Taken Unknown] Simethicone [Gas-X] 125 mg PO Q6H PRN 10/29/16 [Last Taken Unknown] inFLIXimab [Remicade Inj 100 mg (*)] 100 mg IV .[id number] 10/29/16 [Last Taken Unknown] traMADol [Ultram 50 mg (*)] 50 mg PO TID 10/29/16 [Last Taken Unknown] I have personally reviewed and updated: family history, medical history, social history, surgical history - Past Medical History Additional medical history: rheumatoid arthritis. mild intermittent asthma. recent spontaneous intracranial hemorrhage (09/2016, resolved on repeat CT 10/2016 ). Epistaxis, admission 10/27-10/28 - Surgical History Additional surgical history: hysterectomy. L hip ORIF. R TKR. inguinal hernia repairs. bowel obstruction surgery - Family History Positive for: non-pertinent - Social History Smoking Status: Former smoker Alcohol Use: Sober Drug Use: None Additional social history: Patient currently lives alone in assisted living facility, uses walker to ambulate. Has 4 children, one son living in [place]. Review of Systems ROS: 10pt was reviewed & negative except for what was stated in HPI & below Physical Exam Temp Pulse Resp BP Pulse Ox 38 C 78 18 149/89 H 94 10/29/16 22:14 10/29/16 22:14 10/29/16 22:14 10/29/16 22:14 10/29/16 22:14 O2 (L/minute) 2 Constitutional: no apparent distress, appears nourished, not in pain Eyes: PERRL, anicteric sclera, EOMI Ears, Nose, Mouth, Throat: moist mucous membranes, hearing normal, ears appear normal, no oral mucosal ulcers Cardiovascular: regular rate and rhythym, no murmur, rub, or gallop, pulses symmetric bilaterally, No JVD, No edema Peripheral Pulses: 2+: dorsalis-pedis (R), dorsalis-pedis (L) Respiratory: no respiratory distress, no rales or rhonchi, clear to auscultation Gastrointestinal: normoactive bowel sounds, soft, non-tender abdomen, no palpable masses, No guarding, No rebound Genitourinary: no bladder fullness, no bladder tenderness Skin: warm, normal color, no rashes or abrasions, no fluctuance, no induration, No mottled Musculoskeletal: no joint effusions, joint tenderness (in R anterior hip joint as well as lumbar paraspinal musculature), pain with ROM Neurologic: AAOx3, sensation intact bilaterally, CN II-XII Intact, No weakness, No numbness, No facial droop Psychiatric: interacting appropriately, not anxious, not encephalopathic, thought process linear Lab Data & Imaging Review 10/29/16 19:35 10/29/16 19:35 WBC 10.10 10^3/uL (3.80-9.50) H 10/29/16 19:35 RBC 4.65 10^6/uL (4.18-5.33) 10/29/16 19:35 Hgb 14.2 g/dL (12.6-16.3) 10/29/16 19:35 Hct 42.9 % (38.0-47.0) 10/29/16 19:35 MCV 92.3 fL (81.5-99.8) 10/29/16 19:35 MCH 30.5 pg (27.9-34.1) 10/29/16 19:35 MCHC 33.1 g/dL (32.4-36.7) 10/29/16 19:35 RDW 14.4 % (11.5-15.2) 10/29/16 19:35 Plt Count 166 10^3/uL (150-400) 10/29/16 19:35 MPV 10.7 fL (8.7-11.7) 10/29/16 19:35 Neut % (Auto) 86.2 % (39.3-74.2) H 10/29/16 19:35 Lymph % (Auto) 8.8 % (15.0-45.0) L 10/29/16 19:35 [place] % (Auto) 4.5 % (4.5-13.0) 10/29/16 19:35 Eos % (Auto) 0.0 % (0.6-7.6) L 10/29/16 19:35 Baso % (Auto) 0.2 % (0.3-1.7) L 10/29/16 19:35 Nucleat RBC Rel Count 0.0 % (0.0-0.2) 10/29/16 19:35 Absolute Neuts (auto) 8.71 10^3/uL (1.70-6.50) H 10/29/16 19:35 Absolute Lymphs (auto) 0.89 10^3/uL (1.00-3.00) L 10/29/16 19:35 Absolute Monos (auto) 0.45 10^3/uL (0.30-0.80) 10/29/16 19:35 Absolute Eos (auto) 0.00 10^3/uL (0.03-0.40) L 10/29/16 19:35 Absolute Basos (auto) 0.02 10^3/uL (0.02-0.10) 10/29/16 19:35 Absolute Nucleated RBC 0.00 10^3/uL (0-0.01) 10/29/16 19:35 Immature Gran % 0.3 % (0.0-1.1) 10/29/16 19:35 Immature Gran # 0.03 10^3/uL (0.00-0.10) 10/29/16 19:35 PT 13.6 SEC (12.0-15.0) 10/29/16 19:35 INR 1.05 (0.83-1.16) 10/29/16 19:35 APTT 30.1 SEC (23.0-38.0) 10/29/16 19:35 Sodium 134 mEq/L (134-144) 10/29/16 19:35 Potassium 4.2 mEq/L (3.5-5.2) 10/29/16 19:35 Chloride 100 mEq/L (97-110) 10/29/16 19:35 Carbon Dioxide 25 mEq/l (22-31) 10/29/16 19:35 Anion Gap 9 mEq/L (8-16) 10/29/16 19:35 BUN 21 mg/dL (7-23) 10/29/16 19:35 Creatinine 0.9 mg/dL (0.6-1.0) 10/29/16 19:35 Estimated GFR 59 10/29/16 19:35 Glucose 96 mg/dL (70-100) 10/29/16 19:35 Calcium 9.4 mg/dL (8.5-10.4) 10/29/16 19:35 Urine Color YELLOW 10/29/16 20:40 Urine Appearance CLEAR 10/29/16 20:40 Urine pH 7.0 (5.0-7.5) 10/29/16 20:40 Ur Specific [place] 1.015 (1.002-1.030) 10/29/16 20:40 Urine Protein NEGATIVE (NEGATIVE) 10/29/16 20:40 Urine Ketones 1+ (NEGATIVE) H 10/29/16 20:40 Urine Blood NEGATIVE (NEGATIVE) 10/29/16 20:40 Urine Nitrate NEGATIVE (NEGATIVE) 10/29/16 20:40 Urine Bilirubin NEGATIVE (NEGATIVE) 10/29/16 20:40 Urine Urobilinogen NEGATIVE EU (0.2-1.0) 10/29/16 20:40 Ur Leukocyte Esterase NEGATIVE (NEGATIVE) 10/29/16 20:40 Ur Culture Indicated? NOT INDICATED (NI) 10/29/16 20:40 Urine Glucose NEGATIVE (NEGATIVE) 10/29/16 20:40 Visualized and Interpreted imaging results: Yes Interpretation: CT L-spine: degenerative disc disease, but no evidence of acute cord compression, fracture Assessment & Plan Assessment: Patient is an 89 year old female with rheumatoid arthritis, on methotrexate, mild intermittent asthma, just discharged from [facility] on 10/28 after observation admission for epistaxis and nosebleed who presents to the ED one day after discharge with acute low back pain radiating into her R hip. CT of the L spine shows no acute pathology, she is being admitted for further evaluation and pain management. Plan: # acute R hip/low back pain Exam reveals patient is neurovascularly intact, has no focal weakness or clinical signs of cord compression. CT L spine also is negative for acute findings in the L spine, however, imaging does not extend into the R hip/ pelvis. Although patient denies any associated fall or trauma, will check plain films of the hip to r/o acute fracture. Will also provide symptomatic pain relief and muscle relaxants for any associated muscle spasm. # rheumatoid arthritis I do not suspect above pain/symptoms are related to her RA. Will continue home meds. # mild intermittent asthma Resp status stable, will provide nebs prn. # dispo: place in observation # gen: regular diet DVT ppx: low risk, obs DNR
[2016-10-29] MEDS: KETOROLAC 15 MG/1 ML SDV IVP SCH (23:43)
[2016-10-29] MEDS: NS 1,000 ML IV SCH (23:43)
[2016-10-30] MEDS: KETOROLAC 15 MG/1 ML SDV IVP SCH ×2 (05:19→12:43)
[2016-10-30 05:31] LABS: % IMMATURE GRANULYOCYTES 0.3 % (0.0-1.1); ABSOLUTE IMMATURE GRANULOCYTES 0.04 10^3/uL (0.00-0.10); ADD DIFF? NO; ADD MORPH? NO; ADD SCAN? NO; ATYPICAL LYMPHOCYTE FLAG 0 (0-99); FRAGMENT RBC FLAG 0 (0-99); HEMOGLOBIN 10.4 g/dL (12.6-16.3); LEFT SHIFT FLG 20 (0-99); LIPEMIA HEMOLYSIS FLAG 80 (0-99); MEAN CELL HEMOGLOBIN 29.8 pg (27.9-34.1); MEAN CELL HEMOGLOBIN CONCENTR. 32.5 g/dL (32.4-36.7); MEAN CELL VOLUME 91.7 fL (81.5-99.8); MEAN PLATELET VOLUME 10.5 fL (8.7-11.7); PLATELET CLUMPS FLAG 20 (0-99); PLATELET COUNT 135 10^3/uL (150-400); RED BLOOD CELL COUNT 3.49 10^6/uL (4.18-5.33); RED CELL DISTRIBUTION WIDTH 14.2 % (11.5-15.2)
[2016-10-30 05:36] LABS: ANION GAP 8 mEq/L (8-16); CARBON DIOXIDE 22 mEq/l (22-31); CHLORIDE 108 mEq/L (97-110); CREATININE 0.9 mg/dL (0.6-1.0); GLOMERULAR FILTRATION RATE 59; GLUCOSE 77 mg/dL (70-100); POTASSIUM 3.9 mEq/L (3.5-5.2); SODIUM 138 mEq/L (134-144)
[2016-10-30] MEDS ORDERED: NON-FORMULARY NEW DRUG (Simethicone [Gas-X] 125 MG) PO PRN (08:06)
[2016-10-30] MEDS ORDERED: DOCUSATE SODIUM 50 MG PO PRN ×2 (08:06→08:12)
[2016-10-30] MEDS ORDERED: ALBUTEROL 60 PUFFS/8 GM MDI IH PRN (08:06)
[2016-10-30] MEDS ORDERED: NON-FORMULARY NEW DRUG (Propylene Glycol/Peg 400/Pf [Systane 0.3-0.4% Eye Drops] 1 EACH) OP PRN (08:06)
[2016-10-30] MEDS ORDERED: CLOBETASOL PROPIONATE TP PRN (08:06)
[2016-10-30] MEDS ORDERED: SIMETHICONE 80 MG TAB CHEW PO PRN (08:15)
[2016-10-30] MEDS ORDERED: INFLIXIMAB 100 MG IV SCH ×2 (08:15→08:30)
[2016-10-30] MEDS ORDERED: CARBOXYMETHYLCELLULOSE 0.5% 0.4 ML DROPERETTE OP PRN (08:17)
[2016-10-30] MEDS ORDERED: CLOBETASOL 0.05% 25 ML TOPICAL SOLUTION TP PRN (08:20)
[2016-10-30] MEDS ORDERED: NON-FORMULARY NEW DRUG (Folic Acid [Folic Acid] 0.8 MG) PO SCH (09:00)
[2016-10-30] MEDS ORDERED: ENOXAPARIN 40 MG/0.4 ML SYR SC SCH (09:00)
[2016-10-30] MEDS ORDERED: RIVASTIGMINE TARTRATE 6 MG PO SCH (09:00)
[2016-10-30] MEDS: CHOLECALCIFEROL VIT D3 1,000 UNITS TAB PO SCH (09:21)
[2016-10-30] MEDS: CYANO/VITAMIN B12 100 MCG TAB PO SCH (09:22)
[2016-10-30] MEDS: traMADol 50 MG TAB PO SCH ×3 (09:23→22:03)
[2016-10-30] MEDS: MULTIVITAMINS 1 EACH TAB PO SCH (09:23)
[2016-10-30] MEDS: FOLIC ACID 1 MG TAB PO SCH (09:23)
[2016-10-30] MEDS: RIVASTIGMINE TARTRATE 1.5 MG CAP PO SCH ×2 (09:25→22:03)
[2016-10-30] MEDS: CYCLOBENZAPRINE 10 MG TAB PO PRN (09:46)
--- NOTE | 2016-10-30 10:08 | HOSPPROG ---
Hospitalist Progress Note Assessment/Plan: Patient is an 89 year old female with rheumatoid arthritis, on methotrexate, mild intermittent asthma, just discharged from [facility] on 10/28 after observation admission for epistaxis. She presented to the ED one day after discharge with acute low back pain radiating into her R hip. CT of the L spine shows no acute pathology, she is being admitted for further evaluation and pain management. # acute R hip/low back pain CT of hip and pelvis shows no acute findings hip xray shows mild to degenerative changes/evidence of chondrocalcinosis doing well w muscle relaxants, but still having difficulty w walking # rheumatoid arthritis resumed RA medication # mild intermittent asthma stable #Recent ICH in September f/u CT scan of head showed improvement # recent admission of epistaxis #dvt prophylaxis: LMWH was initiated, patient is very concerned about her recent ICH and recent nose bleed/ will dc this and cont athrombic pumps # dispo: she will require another midnight stay/ continues to have difficulty with walking and is at high risk for falling Subjective: Angely is feeling better/ wants to wait on the MRI. Objective: Vital Signs Temp Pulse Resp BP Pulse Ox 37.4 C 73 18 121/61 H 93 10/30/16 07:31 10/30/16 07:31 10/30/16 07:31 10/30/16 07:31 10/30/16 07:31 Laboratory Results 10/30/16 04:26 10/30/16 04:26 10/29/16 10/30/16 10/31/16 05:59 05:59 05:59 Intake Total 1403 Output Total 500 Balance 1403 -500 PT 13.6 SEC (12.0-15.0) 10/29/16 19:35 INR 1.05 (0.83-1.16) 10/29/16 19:35 - Physical Exam Constitutional: no apparent distress, appears nourished, No not in pain (right hip) Eyes: PERRL Ears, Nose, Mouth, Throat: hearing normal Cardiovascular: regular rate and rhythym Respiratory: no respiratory distress Gastrointestinal: normoactive bowel sounds Skin: warm Musculoskeletal: generalized weakness Neurologic: AAOx3 Psychiatric: interacting appropriately ICD10 Worksheet Patient Problems: Problems Problem Status Onset Low back pain Acute Acute pancreatitis Acute Elevated troponin Acute Epistaxis Acute Intertrochanteric fracture of left hip Acute Nausea & vomiting Acute Syncope Acute Syncope Acute
[2016-10-30] MEDS: NS 1,000 ML IV SCH (12:42)
[2016-10-30] MEDS: LIDOCAINE 5% 1 EA PATCH TD SCH (18:23)
[2016-10-30] MEDS: ACETAMINOPHEN 500 MG TAB PO SCH (22:03)
[2016-10-30] MEDS: PATCH REMOVAL 1 EA PATCH TD SCH (22:05)
[2016-10-31 05:35] LABS: % IMMATURE GRANULYOCYTES 0.5 % (0.0-1.1); ABSOLUTE IMMATURE GRANULOCYTES 0.05 10^3/uL (0.00-0.10); ADD DIFF? NO; ADD MORPH? NO; ADD SCAN? NO; ATYPICAL LYMPHOCYTE FLAG 0 (0-99); FRAGMENT RBC FLAG 0 (0-99); HEMATOCRIT 33.3 % (38.0-47.0); HEMOGLOBIN 10.8 g/dL (12.6-16.3); LEFT SHIFT FLG 90 (0-99); LIPEMIA HEMOLYSIS FLAG 80 (0-99); MEAN CELL HEMOGLOBIN 29.5 pg (27.9-34.1); MEAN CELL HEMOGLOBIN CONCENTR. 32.4 g/dL (32.4-36.7); MEAN PLATELET VOLUME 10.4 fL (8.7-11.7); PLATELET CLUMPS FLAG 10 (0-99); PLATELET COUNT 129 10^3/uL (150-400); RED BLOOD CELL COUNT 3.66 10^6/uL (4.18-5.33); RED CELL DISTRIBUTION WIDTH 14.2 % (11.5-15.2)
[2016-10-31 05:43] LABS: ANION GAP 4 mEq/L (8-16); CALCIUM 7.4 mg/dL (8.5-10.4); CARBON DIOXIDE 24 mEq/l (22-31); CHLORIDE 104 mEq/L (97-110); GLOMERULAR FILTRATION RATE 52; GLUCOSE 94 mg/dL (70-100); POTASSIUM 3.8 mEq/L (3.5-5.2); SODIUM 132 mEq/L (134-144)
[2016-10-31] MEDS: LIDOCAINE 5% 1 EA PATCH TD SCH (08:35)
[2016-10-31] MEDS: ACETAMINOPHEN 500 MG TAB PO SCH ×3 (08:36→21:53)
[2016-10-31] MEDS: traMADol 50 MG TAB PO SCH ×2 (08:36→16:06)
[2016-10-31] MEDS: RIVASTIGMINE TARTRATE 1.5 MG CAP PO SCH (08:36)
[2016-10-31] MEDS: CYANO/VITAMIN B12 100 MCG TAB PO SCH (08:36)
[2016-10-31] MEDS: CHOLECALCIFEROL VIT D3 1,000 UNITS TAB PO SCH (08:37)
[2016-10-31] MEDS: FOLIC ACID 1 MG TAB PO SCH (08:37)
[2016-10-31] MEDS: MULTIVITAMINS 1 EACH TAB PO SCH (08:37)
--- NOTE | 2016-10-31 09:40 | HOSPPROG ---
Hospitalist Progress Note Assessment/Plan: Patient is an 89 year old female with rheumatoid arthritis, on methotrexate, mild intermittent asthma, just discharged from [facility] on 10/28 after observation admission for epistaxis. She presented to the ED one day after discharge with acute low back pain radiating into her R hip. CT of the L spine shows no acute pathology, she is being admitted for further evaluation and pain management. # acute R hip/low back pain CT of hip and pelvis shows no acute findings hip xray shows mild to degenerative changes/evidence of chondrocalcinosis would do best with anti-inflammatories, but due to recent epistaxis and ICH/ hesitant to order increase tramadol dose and scheduled Tylenol # swallowing difficulties per her daughter this has been ongoing will ask ST to see # rheumatoid arthritis resumed RA medication # mild intermittent asthma stable #Recent ICH in September f/u CT scan of head showed improvement # recent admission of epistaxis #dvt prophylaxis: LMWH was initiated, patient is very concerned about her recent ICH and recent nose bleed/ will dc this and cont athrombic pumps # dispo: this is her recent 3rd admission and she is very weak this morning/ will await further eval by PT, OT, ST. Will discuss w CM about getting more care for her in her home vs SNF. Subjective: Angely is c/o having difficulty w swallowing/ says she was able to get oob with assist. Objective: Vital Signs Temp Pulse Resp BP Pulse Ox 36.3 C 73 14 153/71 H 93 10/31/16 07:52 10/31/16 07:52 10/31/16 07:52 10/31/16 07:52 10/31/16 07:52 Laboratory Results 10/31/16 04:20 10/31/16 04:20 10/30/16 10/31/16 11/01/16 05:59 05:59 05:59 Intake Total 750 Output Total 250 200 Balance 500 -200 PT 13.6 SEC (12.0-15.0) 10/29/16 19:35 INR 1.05 (0.83-1.16) 10/29/16 19:35 - Physical Exam Constitutional: chronically ill appearing, uncomfortable, No not in pain Eyes: PERRL Ears, Nose, Mouth, Throat: hearing normal Cardiovascular: regular rate and rhythym Respiratory: no respiratory distress Gastrointestinal: normoactive bowel sounds Skin: warm Musculoskeletal: generalized weakness Neurologic: AAOx3 Psychiatric: interacting appropriately, not anxious ICD10 Worksheet Patient Problems: Problems Problem Status Onset Low back pain Acute Acute pancreatitis Acute Elevated troponin Acute Epistaxis Acute Intertrochanteric fracture of left hip Acute Nausea & vomiting Acute Syncope Acute Syncope Acute
[2016-10-31] MEDS: PATCH REMOVAL 1 EA PATCH TD SCH (21:53)
[2016-11-01] MEDS: traMADol 50 MG TAB PO SCH ×3 (08:17→18:26)
[2016-11-01] MEDS: RIVASTIGMINE TARTRATE 1.5 MG CAP PO SCH ×2 (08:18→18:25)
[2016-11-01] MEDS: LIDOCAINE 5% 1 EA PATCH TD SCH (08:18)
[2016-11-01] MEDS: MULTIVITAMINS 1 EACH TAB PO SCH (08:18)
[2016-11-01] MEDS: ACETAMINOPHEN 500 MG TAB PO SCH ×3 (08:18→21:12)
--- NOTE | 2016-11-01 13:26 | HOSPPROG ---
Hospitalist Progress Note Assessment/Plan: Patient is an 89 year old female with rheumatoid arthritis, on methotrexate, mild intermittent asthma, just discharged from [facility] on 10/28 after observation admission for epistaxis. She presented to the ED one day after discharge with acute low back pain radiating into her R hip. CT of the L spine shows no acute pathology, she is being admitted for further evaluation and pain management. # acute R hip/low back pain CT of hip and pelvis shows no acute findings hip xray shows mild to degenerative changes/evidence of chondrocalcinosis would do best with anti-inflammatories, but due to recent epistaxis and ICH/ hesitant to order increase tramadol dose and scheduled Tylenol # swallowing difficulties per her daughter this has been ongoing awaiting speech therapy to see # rheumatoid arthritis resumed RA medication # mild intermittent asthma stable #Recent ICH in September f/u CT scan of head showed improvement # recent admission of epistaxis #dvt prophylaxis: LMWH was initiated, patient is very concerned about her recent ICH and recent nose bleed/ will dc this and cont athrombic pumps # dispo: plan for SNF Subjective: Angely is feeling a bit better today. Objective: Vital Signs Temp Pulse Resp BP Pulse Ox 37.1 C 80 22 H 146/86 H 91 L 11/01/16 08:29 11/01/16 08:29 11/01/16 08:29 11/01/16 08:29 11/01/16 08:29 Laboratory Results 10/31/16 04:20 10/31/16 04:20 10/31/16 11/01/16 11/02/16 05:59 05:59 05:59 Intake Total 750 500 Output Total 250 200 Balance 500 300 PT 13.6 SEC (12.0-15.0) 10/29/16 19:35 INR 1.05 (0.83-1.16) 10/29/16 19:35 - Physical Exam Constitutional: no apparent distress, chronically ill appearing, No not in pain (right hip area) Eyes: PERRL Ears, Nose, Mouth, Throat: hearing normal Gastrointestinal: normoactive bowel sounds Skin: warm Musculoskeletal: generalized weakness Neurologic: AAOx3 Psychiatric: interacting appropriately ICD10 Worksheet Patient Problems: Problems Problem Status Onset Low back pain Acute Acute pancreatitis Acute Elevated troponin Acute Epistaxis Acute Intertrochanteric fracture of left hip Acute Nausea & vomiting Acute Syncope Acute Syncope Acute
[2016-11-01] MEDS: CYANO/VITAMIN B12 100 MCG TAB PO SCH (14:11)
[2016-11-01 17:06] LABS: COLOR YELLOW; LEUKOCYTE ESTERASE,URINE 2+ (NEGATIVE); NITRITE,URINE POSITIVE (NEGATIVE)
[2016-11-01 17:22] LABS: BACTERIA 4+ /hpf (NONE SEEN); MUCUS 2+ /lpf (NONE-1+); RBC,URINE 15-25 /hpf (0-3); WBC,URINE 50-182 /hpf (0-3)
[2016-11-01 17:41] LABS: % IMMATURE GRANULYOCYTES 0.3 % (0.0-1.1); ABSOLUTE IMMATURE GRANULOCYTES 0.03 10^3/uL (0.00-0.10); ADD DIFF? NO; ADD MORPH? NO; ADD SCAN? YES; ATYPICAL LYMPHOCYTE FLAG 0 (0-99); FRAGMENT RBC FLAG 0 (0-99); HEMATOCRIT 36.9 % (38.0-47.0); HEMOGLOBIN 12.3 g/dL (12.6-16.3); LIPEMIA HEMOLYSIS FLAG 80 (0-99); MEAN CELL HEMOGLOBIN 30.2 pg (27.9-34.1); MEAN CELL HEMOGLOBIN CONCENTR. 33.3 g/dL (32.4-36.7); MEAN CELL VOLUME 90.7 fL (81.5-99.8); MEAN PLATELET VOLUME 10.8 fL (8.7-11.7); PLATELET CLUMPS FLAG 0 (0-99); PLATELET COUNT 150 10^3/uL (150-400); RED BLOOD CELL COUNT 4.07 10^6/uL (4.18-5.33); RED CELL DISTRIBUTION WIDTH 14.2 % (11.5-15.2)
[2016-11-01 17:43] LABS: LEFT SHIFT FLG 140 (0-99)
[2016-11-01 17:46] LABS: APTT 27.5 SEC (23.0-38.0); INR 1.08 (0.83-1.16); PROTIME(PATIENT) 13.9 SEC (12.0-15.0)
[2016-11-01 17:59] LABS: ANION GAP 9 mEq/L (8-16); BILIRUBIN,TOTAL 0.8 mg/dL (0.1-1.4); CALCIUM 8.1 mg/dL (8.5-10.4); CARBON DIOXIDE 22 mEq/l (22-31); CHLORIDE 100 mEq/L (97-110); CREATININE 0.9 mg/dL (0.6-1.0); GLOMERULAR FILTRATION RATE 59; GLUCOSE 93 mg/dL (70-100); POTASSIUM 4.6 mEq/L (3.5-5.2); SODIUM 131 mEq/L (134-144)
[2016-11-01 18:08] LABS: SCAN POSITIVE
[2016-11-01 18:12] LABS: PLATELET ESTIMATE ADEQUATE (ADEQ)
[2016-11-01] MEDS: FOLIC ACID 1 MG TAB PO SCH (18:26)
[2016-11-01] MEDS: CHOLECALCIFEROL VIT D3 1,000 UNITS TAB PO SCH (18:26)
[2016-11-01] MEDS: CYCLOBENZAPRINE 10 MG TAB PO PRN (21:14)
[2016-11-01] MEDS: PATCH REMOVAL 1 EA PATCH TD SCH (21:20)
[2016-11-01] MEDS ORDERED: GADOBUTROL 10 ML VIAL IVP ONE (23:16)
[2016-11-02] MEDS: traMADol 50 MG TAB PO PRN (02:13)
[2016-11-02] MEDS: oxyCODONE IR 5 MG TAB PO PRN ×2 (05:50→22:39)
[2016-11-02] MEDS: ACETAMINOPHEN 500 MG TAB PO SCH ×4 (05:54→22:38)
--- NOTE | 2016-11-02 08:48 | HOSPPROG ---
Hospitalist Progress Note Assessment/Plan: Patient is an 89 year old female with rheumatoid arthritis, on methotrexate, mild intermittent asthma, just discharged from [facility] on 10/28 after observation admission for epistaxis. She presented to the ED one day after discharge with acute low back pain radiating into her R hip. CT of the L spine shows no acute pathology, she is being admitted for further evaluation and pain management. #gram + bacteremia growth in both sets will ask ID To see/vancomycin x one now was called last night by staff for fever, tachycardia lactate stable source unclear had been having severe back and hip pain/MRI showed no etiology of abscess, etc #SIRS fever, tachycardia much improved # acute R hip/low back pain CT of hip and pelvis shows no acute findings hip xray shows mild to degenerative changes/evidence of chondrocalcinosis would do best with anti-inflammatories, but due to recent epistaxis and ICH/ hesitant to order increase tramadol dose and scheduled Tylenol # swallowing difficulties per her daughter this has been ongoing reviewed her care w ST who didn't see any significant issues w dysphagia # rheumatoid arthritis resumed RA medication # mild intermittent asthma stable #Recent ICH in September f/u CT scan of head showed improvement # recent admission of epistaxis #dvt prophylaxis: LMWH was initiated, patient is very concerned about her recent ICH and recent nose bleed/ will dc this and cont athrombic pumps # dispo: Pending/ due to the above, Dr Quinonez to see, will give a dose of vancomycin x 1 now, will get an echo Subjective: Angely has been feeling poorly and says her pain in back is ongoing. Objective: Vital Signs Temp Pulse Resp BP Pulse Ox 37.2 C 80 16 133/72 H 95 11/02/16 07:55 11/02/16 07:55 11/02/16 07:55 11/02/16 07:55 11/02/16 07:55 Laboratory Results 11/01/16 17:10 11/01/16 17:10 11/01/16 11/02/16 11/03/16 05:59 05:59 05:59 Intake Total 500 300 Output Total 200 520 Balance 300 -220 PT 13.9 SEC (12.0-15.0) 11/01/16 17:10 INR 1.08 (0.83-1.16) 11/01/16 17:10 - Physical Exam Constitutional: chronically ill appearing, uncomfortable Eyes: PERRL Ears, Nose, Mouth, Throat: hearing normal Cardiovascular: regular rate and rhythym Respiratory: no respiratory distress Gastrointestinal: normoactive bowel sounds Skin: warm Musculoskeletal: generalized weakness, No no muscle tenderness Neurologic: AAOx3 Psychiatric: interacting appropriately ICD10 Worksheet Patient Problems: Problems Problem Status Onset Low back pain Acute Acute pancreatitis Acute Elevated troponin Acute Epistaxis Acute Intertrochanteric fracture of left hip Acute Nausea & vomiting Acute Syncope Acute Syncope Acute
[2016-11-02] MEDS: MULTIVITAMINS 1 EACH TAB PO SCH (09:20)
[2016-11-02] MEDS: POLYETHYLENE GLYCOL 3350 17 GM PKT PO SCH ×2 (09:20→20:14)
[2016-11-02] MEDS: RIVASTIGMINE TARTRATE 1.5 MG CAP PO SCH ×2 (09:22→18:40)
[2016-11-02] MEDS: LIDOCAINE 5% 1 EA PATCH TD SCH (09:22)
[2016-11-02] MEDS: traMADol 50 MG TAB PO SCH ×3 (09:26→18:40)
[2016-11-02] MEDS ORDERED: VANCOMYCIN HCL/NORMAL SALINE 250 ML IV ONE (10:53)
--- NOTE | 2016-11-02 12:52 | GCON ---
[f rep st] CONSULTATION INFECTIOUS DISEASE CONSULTATION DATE OF CONSULTATION: 11/02/2016 REASON FOR CONSULTATION: Staph bacteremia. HISTORY OF PRESENT ILLNESS: An 89-year-old woman with rheumatoid arthritis, on methotrexate and Rem icade every 8 weeks, whose recent problems date back to 10/27/2016, when she presented to the emerge ncy room with epistaxis. She underwent overnight observation and Merocel packing of the nose. She was given perioperative azithromycin. The patient was discharged home the following day on the , but returned on the complaining of severe low back pain and hip pain. She was admitted for f urther observation and evaluation. While hospitalized, the patient had a temperature to 38.6 on , had blood cultures taken which grew out Staph aureus in less than 24 hours. In the interim , the patient also underwent a pelvic MRI and lumbar MRI with contrast that were unremarkable for ev idence of infection at these sites and only positive for severe spinal stenosis at L3-L4, L4-L5. De spite no antibiotic therapy, she does feel slightly better as compared to admission. PAST MEDICAL HISTORY: 1. Rheumatoid arthritis, on methotrexate and Remicade. She is managed by Dr. Melgar. 2. Mild intermittent asthma. 3. Recent spontaneous intracranial hemorrhage, 09/12/2016, in the left frontal intra-axial location , resolved on repeat imaging in October. 4. Epistaxis dimension as per HPI. PAST SURGICAL HISTORY: Hysterectomy, left hip open reduction AND internal fixation after fracture, right total knee replacement, inguinal hernia repairs, and bowel obstruction surgery. FAMILY HISTORY: Reviewed and not significant. SOCIAL HISTORY: She is a former smoker. No past alcohol. She lives in assisted living. Has 4 chi ldren. Previously worked as a special librarian. She moved to [place] in 1988. REVIEW OF SYSTEMS: A complete 10-point review of systems was performed and is negative except as me ntioned in the HPI. Specifically patient denies urinary frequency or dysuria. PHYSICAL EXAMINATION: VITAL SIGNS: T-max 38.6, T current is 37.2, blood pressure 133/72, heart rat e 80, respiratory rate 16, saturation 95% on room air. GENERAL: This is a pleasant woman sitting u p in bed, very articulate. HEENT: Fair dentition. Moist mucous membranes. No oral ulcerations or exudate. No conjunctival hemorrhages. Neck: Supple. No lymphadenopathy. CARDIOVASCULAR: Regul ar rate and rhythm with a late systolic murmur. CHEST: She has some bibasilar crackles; otherwise, was clear to auscultation bilaterally. ABDOMEN: Soft, nontender. Bowel sounds are present. EXTR EMITIES: She has obvious joint changes consistent with rheumatoid arthritis, but no active joint sw elling. No lower extremity edema. NEUROLOGIC: She was alert and oriented x4. SKIN: No rashes. IMAGING: Echocardiogram performed on 10/27/2016, showed an ejection fraction of 70% to 75%, trace t ricuspid regurgitation, trileaflet aortic valve that opens well; otherwise, no abnormalities were no luis. MR of the lumbar spine and pelvis were negative as per HPI. LABORATORY DATA: White count 10.2, hematocrit 36, platelets 150, with 86% neutrophils. Creatinine is 0.9. Urinalysis showed 50-182 WBCs. Lactic acid 1.2. Blood cultures from 11/01/2016, two sets with MSSA; formal susceptibilities pending. ASSESSMENT: An 89-year-old woman who is chronically immune compromised due to methotrexate and Demetrius anderson therapy for rheumatoid arthritis who had a spontaneous epistaxis on 10/27/2016, who underwent t herapy in the emergency room now with subsequent methicillin-sensitive Staphylococcus aureus bactere celia, likely source related to epistaxis. 1. Methicillin-sensitive Staphylococcus aureus bacteremia. 2. 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 RECOMMENDATIONS: 1. Would start cefazolin 1 g IV q.8 due to renal dysfunction due to age. 2. Would repeat blood cultures after 48 hours of antibiotics. 3. I will continue to follow clinically. If blood cultures clear after 48 hours, would recommend a course of treatment of 2 weeks. 4. Reviewed PICC line placement, risks and benefits, and need for at least 2 weeks of IV antibiotic therapy. I explained to the patient and her family regarding continue to monitor clinical findings to assess for evidence of secondary infection such as joint infection, endocarditis, etc., based on clinical symptoms and laboratory findings. At this point, hopefully this is a transient bacteremia that could be treated with a 2-week course. Case was discussed with Stephanie Singer. We will continue to follow the patient on a daily basis. Thank you for this consult. /[id number]/MODL
[2016-11-02] MEDS: CYANO/VITAMIN B12 100 MCG TAB PO SCH (13:43)
[2016-11-02] MEDS: CHOLECALCIFEROL VIT D3 1,000 UNITS TAB PO SCH (18:39)
[2016-11-02] MEDS: FOLIC ACID 1 MG TAB PO SCH (18:39)
[2016-11-02] MEDS: PATCH REMOVAL 1 EA PATCH TD SCH (20:14)
[2016-11-02] MEDS: CYCLOBENZAPRINE 10 MG TAB PO PRN (22:38)
[2016-11-03] MEDS: oxyCODONE IR 5 MG TAB PO PRN (05:23)
[2016-11-03] MEDS: traMADol 50 MG TAB PO PRN (05:23)
[2016-11-03] MEDS: LIDOCAINE 5% 1 EA PATCH TD SCH (08:30)
[2016-11-03] MEDS: POLYETHYLENE GLYCOL 3350 17 GM PKT PO SCH ×2 (08:30→20:45)
[2016-11-03] MEDS: MULTIVITAMINS 1 EACH TAB PO SCH (08:31)
[2016-11-03] MEDS: traMADol 50 MG TAB PO SCH ×3 (08:31→17:12)
[2016-11-03] MEDS: RIVASTIGMINE TARTRATE 1.5 MG CAP PO SCH ×2 (08:31→17:09)
[2016-11-03] MEDS: ACETAMINOPHEN 500 MG TAB PO SCH ×3 (08:31→20:48)
--- NOTE | 2016-11-03 08:31 | ECHO ---
[id number] + + [address] : : [place] [address] : : [phone] + Adult Echocardiographic Report + --+ :Name: Cayetano BROWN Date: 11/02/2016 12:42 PM BP: 113/62 mmHg : : Hospital Admission Number: [id number] Location: 3 44: :: 1925 Gender: Female Height: 60 in : :Age: 89 yrs Race: WH Weight: 130 lb : :Reason For Study: r/o endocarditis : : BSA: 1.6 meters2 : :History: bacteremia : + --+ MMode/2D Measurements \T\ Calculations IVSd: 1.1 cm LVIDd: 3.4 cm FS: 35.4 % Ao root diam: 3.5 cm LVPWd: 1.1 cm LVIDs: 2.2 cm EDV(Teich): 47.7 ml ESV(Teich): 16.3 ml EF(Teich): 65.9 % Normal Measurement Values: + + :LVIDd (3.5-5.7cm) IVSd (0.6-1.1cm) LVPWd (0.6-1.1cm) Aortic Root (2.0-3.7cm)Left Atrium (1.5-4.0cm): :LV Vol(d) (76-115ml) LV Vol(s) (29-48ml) Ejec Fraction (50-65%)PV Chencho (0.6- 1.2m/s) TV Chencho (0.4-1.0m/s) : :MV E Chencho (0.8-1.0m/s)MV A Chencho (0.3-1.0m/s)LVOT Chencho (0.7-1.2m/s) Asc Ao Chencho ( 0.9-1.8m/s) : + + Doppler Measurements \T\ Calculations MV E max chencho: Ao V2 max: LV V1 max: PA V2 max: 83.9 cm/sec 161.0 cm/sec 80.9 cm/sec 68.8 cm/sec MV A max chencho: Ao max PG: LV V1 max PG: PA max P.4 cm/sec 10.4 mmHg 2.6 mmHg 1.9 mmHg MV E/A: 0.97 MV dec time: 0.25 sec TR max chencho: 289.1 cm/sec TR max P.4 mmHg RAP systole: 10.0 mmHg RVSP(TR): 43.4 mmHg Left Ventricle The left ventricle is normal in size. There is mild concentric left ventricular hypertrophy. Ejection Fraction = 65%. Right Ventricle The right ventricle is mild to moderately dilated. Atria The left atrial size is normal. Right atrial size is normal. Mitral Valve There is mitral anular calcification. The mitral valve leaflets are thickened and sclerotic. No significant mitral valve stenosis. There is trace to mild mitral regurgitation. Tricuspid Valve The tricuspid valve is normal in structure and function. There is no tricuspid stenosis. There is mild tricuspid regurgitation. Right ventricular systolic pressure is 43mmHg. There is Doppler evidence for mild pulmonary hypertension. Aortic Valve The aortic valve is trileaflet. All three leaflets are thickened and sclerotic. There is no aortic stenosis. Trace aortic regurgitation. Pulmonic Valve The pulmonic valve is not well visualized. Mild pulmonic valvular regurgitation. Great Vessels The aortic root is normal size. Pericardium/Pleural There is no pericardial effusion. Conclusion A two-dimensional transthoracic echocardiogram with M-mode and Doppler was performed. Limited apical window. 1. The left ventricle is normal in size. There is mild concentric left ventricular hypertrophy. The Ejection Fraction = 65%. 2. The right ventricle is mild to moderately dilated. There is Doppler evidence for mild pulmonary hypertension. Right ventricular systolic pressure is 43mmHg. 3. There is mitral anular calcification. The mitral valve leaflets are thickened and sclerotic. No significant mitral valve stenosis. There is trace to mild mitral regurgitation. 4. The aortic valve is trileaflet. All three leaflets are thickened and sclerotic. There is no aortic stenosis. Trace aortic regurgitation. 5. No obvious vegetations identified with in the confines of TTE. Consider BAMBI if clinically indicated. Final Reading Physician: Michael Narayan MD electronically signed on 11/03/2016 08:29 AM Ordering Physician: Stephanie Singer Performed By: Apple Cantor
[2016-11-03] MEDS ORDERED: METHOTREXATE 2.5 MG TAB PO SCH (09:00)
--- NOTE | 2016-11-03 11:12 | HOSPPROG ---
Hospitalist Progress Note Assessment/Plan: Patient is an 89 year old female with rheumatoid arthritis, on methotrexate, mild intermittent asthma, just discharged from [facility] on 10/28 after observation admission for epistaxis. She presented to the ED one day after discharge with acute low back pain radiating into her R hip. CT of the L spine shows no acute pathology, she is being admitted for further evaluation and pain management. #MSSA bacteremia/source is likely r/t epistaxis appreciate Dr Quinonez #SIRS fever, tachycardia much improved # acute R hip/low back pain CT of hip and pelvis shows no acute findings hip xray shows mild to degenerative changes/evidence of chondrocalcinosis would do best with anti-inflammatories, but due to recent epistaxis and ICH/ hesitant to order increase tramadol dose and scheduled Tylenol MRI shows severe stenosis @ L4-L5, L3-L4 # swallowing difficulties per her daughter this has been ongoing reviewed her care w ST who didn't see any significant issues w dysphagia # rheumatoid arthritis resumed RA medication # mild intermittent asthma stable #Recent ICH in September f/u CT scan of head showed improvement # recent admission of epistaxis #dvt prophylaxis: LMWH was initiated, patient is very concerned about her recent ICH and recent nose bleed/she prefers not to take this/ is oob frequently , will dc this and cont athrombic pumps # dispo: Pending, needs repeat blood cx that are clear Subjective: Angely says her back pain is more managemeble. Looking forward to going to rehab and getting back home. Objective: Vital Signs Temp Pulse Resp BP Pulse Ox 36.9 C 78 16 122/66 H 89 L 11/03/16 07:13 11/03/16 07:13 11/03/16 07:13 11/03/16 07:13 11/03/16 07:13 Microbiology 11/01/16 17:10 Blood Panel (PCR) - Final Blood S.aureus Methicillin Suscept. Laboratory Results 11/01/16 17:10 11/01/16 17:10 11/02/16 11/03/16 11/04/16 05:59 05:59 05:59 Intake Total 300 450 Output Total 520 350 Balance -220 100 PT 13.9 SEC (12.0-15.0) 11/01/16 17:10 INR 1.08 (0.83-1.16) 11/01/16 17:10 - Physical Exam Constitutional: no apparent distress, appears nourished, chronically ill appearing Eyes: PERRL Ears, Nose, Mouth, Throat: hearing normal Cardiovascular: regular rate and rhythym Respiratory: no respiratory distress Gastrointestinal: normoactive bowel sounds Skin: warm Musculoskeletal: muscular tenderness, generalized weakness Neurologic: AAOx3 Psychiatric: interacting appropriately, not anxious ICD10 Worksheet Patient Problems: Problems Problem Status Onset Low back pain Acute Acute pancreatitis Acute Elevated troponin Acute Epistaxis Acute Intertrochanteric fracture of left hip Acute Nausea & vomiting Acute Syncope Acute Syncope Acute
--- NOTE | 2016-11-03 12:28 | PCMIDPN ---
Assessment/Plan: # immune compromise due to therapy for RA including methotrexate and Remicade # MSSA bacteremia secondary to epistaxis/treatment of epistaxis. --continue cefazolin at lower dose due to expected renal dysfunction for age and weight --repeat blood cultures 11/04 --duration based on clearance of blood cultures on Friday, tentatively plan 2 weeks (11/18) , place PICC line 11/06 if blood cultures are negative # Urine culture showing lactose bonding machine tender: Consistent with colonization patient without urinary symptoms. Medications Cefazolin 1 g IV Q 8 Subjective: Patient describing generalized stiff joints, otherwise no complaints Objective: Vital Signs Temp Pulse Resp BP Pulse Ox 36.9 C 78 16 122/66 H 89 L 11/03/16 07:13 11/03/16 07:13 11/03/16 07:13 11/03/16 07:13 11/03/16 07:13 Microbiology 11/01/16 17:10 Blood Panel (PCR) - Final Blood S.aureus Methicillin Suscept. Laboratory Results 11/01/16 17:10 11/01/16 17:10 11/02/16 11/03/16 11/04/16 05:59 05:59 05:59 Intake Total 300 450 Output Total 520 350 Balance -220 100 - Physical Exam General Appearance: alert, no apparent distress, thin, non-toxic EENT: pale conjunctiva Respiratory: lungs clear Cardiac/Chest: regular rate, rhythm Extremities: other (Obvious joint changes consistent with chronic rheumatoid arthritis), No pedal edema Abdomen: non-tender, soft Skin: No rash Neuro/Psych: alert, normal mood/affect, oriented x 3 ICD10 Worksheet Patient Problems: Problems Problem Status Onset Low back pain Acute Acute pancreatitis Acute Elevated troponin Acute Epistaxis Acute Intertrochanteric fracture of left hip Acute Nausea & vomiting Acute Syncope Acute Syncope Acute
[2016-11-03] MEDS: CYANO/VITAMIN B12 100 MCG TAB PO SCH (12:41)
[2016-11-03 13:30] LABS: % IMMATURE GRANULYOCYTES 0.6 % (0.0-1.1); ABSOLUTE IMMATURE GRANULOCYTES 0.08 10^3/uL (0.00-0.10); ADD DIFF? NO; ADD MORPH? NO; ADD SCAN? NO; ATYPICAL LYMPHOCYTE FLAG 0 (0-99); FRAGMENT RBC FLAG 0 (0-99); HEMATOCRIT 34.1 % (38.0-47.0); HEMOGLOBIN 11.3 g/dL (12.6-16.3); LEFT SHIFT FLG 40 (0-99); LIPEMIA HEMOLYSIS FLAG 80 (0-99); MEAN CELL HEMOGLOBIN 30.2 pg (27.9-34.1); MEAN CELL HEMOGLOBIN CONCENTR. 33.1 g/dL (32.4-36.7); MEAN CELL VOLUME 91.2 fL (81.5-99.8); MEAN PLATELET VOLUME 10.4 fL (8.7-11.7); PLATELET CLUMPS FLAG 20 (0-99); PLATELET COUNT 137 10^3/uL (150-400); RED BLOOD CELL COUNT 3.74 10^6/uL (4.18-5.33); RED CELL DISTRIBUTION WIDTH 14.4 % (11.5-15.2)
[2016-11-03 13:42] LABS: ALANINE AMINOTRANSFERASE 37 IU/L (9-52); ALKALINE PHOSPHATASE 88 IU/L (38-126); ANION GAP 9 mEq/L (8-16); ASPARTATE AMINOTRANSFERASE 40 IU/L (14-46); BILIRUBIN,TOTAL 0.5 mg/dL (0.1-1.4); CALCIUM 7.6 mg/dL (8.5-10.4); CARBON DIOXIDE 23 mEq/l (22-31); CHLORIDE 98 mEq/L (97-110); CREATININE 0.9 mg/dL (0.6-1.0); GLOMERULAR FILTRATION RATE 59; GLUCOSE 105 mg/dL (70-100); POTASSIUM 5.1 mEq/L (3.5-5.2); SODIUM 130 mEq/L (134-144)
[2016-11-03] MEDS ORDERED: MAGNESIUM HYDROXIDE 30 ML UDCUP PO PRN (13:45)
[2016-11-03] MEDS ORDERED: LACTULOSE 20 GM/30 ML UDCUP PO PRN (13:45)
[2016-11-03] MEDS: CYCLOBENZAPRINE 10 MG TAB PO PRN (13:54)
[2016-11-03] MEDS: CHOLECALCIFEROL VIT D3 1,000 UNITS TAB PO SCH (17:11)
[2016-11-03] MEDS: FOLIC ACID 1 MG TAB PO SCH (17:11)
[2016-11-03] MEDS: BISACODYL 10 MG SUPP PR PRN (17:12)
[2016-11-03] MEDS: SENNOSIDES/DOCUSATE SODIUM TAB PO SCH (20:45)
[2016-11-03] MEDS: PATCH REMOVAL 1 EA PATCH TD SCH (20:58)
[2016-11-04] MEDS: CYCLOBENZAPRINE 10 MG TAB PO PRN ×2 (01:40→21:50)
[2016-11-04] MEDS: traMADol 50 MG TAB PO PRN ×2 (03:45→21:50)
[2016-11-04] MEDS: LIDOCAINE 5% 1 EA PATCH TD SCH (09:44)
[2016-11-04] MEDS: POLYETHYLENE GLYCOL 3350 17 GM PKT PO SCH ×2 (09:44→21:14)
[2016-11-04] MEDS: RIVASTIGMINE TARTRATE 1.5 MG CAP PO SCH ×2 (09:45→17:57)
[2016-11-04] MEDS: SENNOSIDES/DOCUSATE SODIUM TAB PO SCH ×2 (09:46→21:12)
[2016-11-04] MEDS: ACETAMINOPHEN 500 MG TAB PO SCH ×3 (09:46→21:12)
[2016-11-04] MEDS: traMADol 50 MG TAB PO SCH ×3 (09:46→17:57)
[2016-11-04] MEDS: MULTIVITAMINS 1 EACH TAB PO SCH (09:47)
[2016-11-04] MEDS ORDERED: INFLIXIMAB IV SCH (12:00)
--- NOTE | 2016-11-04 12:54 | SOAPPROG ---
SOAP Progress Note Assessment/Plan: Assessment:Left shoulder fluid collection Plan:I aspirated this and sent to lab for G/S and C/S. Did not look like pus, looked like slightly hemorrhagic joint fluid. CONSULT NOTE DICTATED 11/04/16 12:52 I keren Subjective: Left Shoulder has hurt for weeks Objective: Vital Signs Temp Pulse Resp BP Pulse Ox 36.9 C 86 16 133/72 H 89 L 11/04/16 08:00 11/04/16 08:00 11/04/16 08:00 11/04/16 08:00 11/04/16 08:00 Microbiology 11/01/16 17:20 Blood Culture - Final Blood Staphylococcus Aureus 11/01/16 17:10 Blood Culture - Final Blood Staphylococcus Aureus Blood Panel (PCR) - Final S.aureus Methicillin Suscept. 11/01/16 08:02 Urine Culture - Final Urine,Clean Catch Escherichia Coli Two [place] Types Laboratory Results 11/03/16 13:21 11/03/16 13:21 11/03/16 11/04/16 11/05/16 05:59 05:59 05:59 Intake Total 450 600 Output Total 350 Balance 100 600 PT 13.9 SEC (12.0-15.0) 11/01/16 17:10 INR 1.08 (0.83-1.16) 11/01/16 17:10 Left shoulder with fluid collection close to surface (this is either inflamed large bursa or joint effusion. ICD10 Worksheet Patient Problems: Problems Problem Status Onset Low back pain Acute Acute pancreatitis Acute Elevated troponin Acute Epistaxis Acute Intertrochanteric fracture of left hip Acute Nausea & vomiting Acute Syncope Acute Syncope Acute
[2016-11-04] MEDS: CYANO/VITAMIN B12 100 MCG TAB PO SCH (13:27)
--- NOTE | 2016-11-04 14:24 | HOSPPROG ---
Hospitalist Progress Note Assessment/Plan: Patient is an 89 year old female with rheumatoid arthritis, on methotrexate, mild intermittent asthma, just discharged from [facility] on 10/28 after observation admission for epistaxis. She presented to the ED one day after discharge with acute low back pain radiating into her R hip. CT of the L spine shows no acute pathology, she is being admitted for further evaluation and pain management. First encounter this visit. Chart reviewed. D/W Dr Chang and Pramod from ortho. #MSSA bacteremia/source is likely r/t epistaxis cont IV abx, cefazolin repeat BC pending plan for PICC after BC negative #SIRS fever, tachycardia resolved # acute R hip/low back pain CT of hip and pelvis shows no acute findings hip xray shows mild to degenerative changes/evidence of chondrocalcinosis would do best with anti-inflammatories, but due to recent epistaxis and ICH/ hesitant to order increase tramadol dose and scheduled Tylenol MRI shows severe stenosis @ L4-L5, L3-L4 # swallowing difficulties per her daughter this has been ongoing ST who didn't see any significant issues w dysphagia # rheumatoid arthritis resumed RA medication #Left shoulder pain appreciate Dr Woods tap, cx sent xray follow # mild intermittent asthma stable #Recent ICH in September f/u CT scan of head showed improvement # recent admission of epistaxis #dvt prophylaxis: LMWH was initiated, patient is very concerned about her recent ICH and recent nose bleed/she prefers not to take this/ is oob frequently , will dc this and cont athrombic pumps # dispo: Pending, needs repeat blood cx that are clear Subjective: Up in chair. Complaing of left shoudler pain. Not feeling well. Family at bedside. Objective: Vital Signs Temp Pulse Resp BP Pulse Ox 36.9 C 86 16 133/72 H 89 L 11/04/16 08:00 11/04/16 08:00 11/04/16 08:00 11/04/16 08:00 11/04/16 08:00 Microbiology 11/01/16 17:20 Blood Culture - Final Blood Staphylococcus Aureus 11/01/16 17:10 Blood Culture - Final Blood Staphylococcus Aureus Blood Panel (PCR) - Final S.aureus Methicillin Suscept. 11/01/16 08:02 Urine Culture - Final Urine,Clean Catch Escherichia Coli Two [place] Types Laboratory Results 11/03/16 13:21 11/03/16 13:21 11/03/16 11/04/16 11/05/16 05:59 05:59 05:59 Intake Total 450 600 Output Total 350 Balance 100 600 PT 13.9 SEC (12.0-15.0) 11/01/16 17:10 INR 1.08 (0.83-1.16) 11/01/16 17:10 - Physical Exam Constitutional: appears nourished, chronically ill appearing, uncomfortable Eyes: PERRL, anicteric sclera, EOMI Ears, Nose, Mouth, Throat: moist mucous membranes, hearing normal, ears appear normal Cardiovascular: No JVD, No tachycardia, No edema Respiratory: no respiratory distress, no rales or rhonchi, reduced air movement Gastrointestinal: No tenderness, No ascites, No guarding Skin: warm, normal color, No erythema Musculoskeletal: joint tenderness, pain with ROM, muscular tenderness, generalized weakness Neurologic: AAOx3 Psychiatric: interacting appropriately, not anxious, not encephalopathic ICD10 Worksheet Patient Problems: Problems Problem Status Onset Nausea & vomiting Acute Acute pancreatitis Acute Intertrochanteric fracture of left hip Acute Syncope Acute Elevated troponin Acute Epistaxis Acute Syncope Acute Low back pain Acute
--- NOTE | 2016-11-04 14:28 | GCON ---
[f rep st] CONSULTATION ORTHOPEDIC SURGERY CONSULTATION DATE OF CONSULTATION: 11/04/2016 HISTORY: The patient is an 89-year-old woman who is admitted for systemic bacteremia which is presu med secondary to epistaxis. She has had numerous complaints of joint pains, including hips and lumb ar spine, that have been worked up with 3 dimensional imaging. There is no record in the hospital [facility] regarding left shoulder pain. However, I was called today to aspirate the left shoulder. Review with the patient and her family indicate that she has had left shoulder pain of long-standing duration, specifically greater than 2-3 weeks. This is not necessarily changed for the better or w orse during her hospitalization. It is painful to the touch anteriorly and she has difficulty maint aining a comfortable body position due to multiple skeletal complaints. The details of her inpatien t stay, as well as her admission to the hospital, are well documented in hospital notes and history, which I have reviewed today in detail. EXAMINATION: The left shoulder has a fluid collection anteriorly that is readily evident and palpab le. She is exquisitely tender when I pressurize this or touch this. Passive abduction to 30 degree s and passive forward elevation to 30 degrees increases her discomfort significantly. From the elbo w distally, she has a normal neurovascular examination, including normal motor control. She does castillo ve long-standing rheumatoid arthritis and her hands are affected by this with ulnar drift of the dig its through the MP joints and several of these which are dislocated, but she is managing well with t his. IMAGING: I have reviewed a chest x-ray that shows the bilateral shoulders. These do not demonstrat e any significant arthritic changes at the glenohumeral joint or the acromioclavicular joint. Howev er, these are nonspecific x-rays for this particular body location. PROCEDURE: Based on the fluid collection that is clearly evident anteriorly in her shoulder, under sterile conditions with skin prep of chlorhexidine and alcohol, I have aspirated and retrieved 4 cc of a thin, serous, slightly blood-tinged fluid. I sent this to Microbiology for Gram stain, culture s and sensitivities. IMPRESSION: My suspicion is this is likely a bursitis of long-standing duration. There is not any dyllan evidence of pus indicative of a longstanding infectious process. However, this certainly is i n the differential diagnosis and must be excluded. The culture should allow for this. My approach to the shoulder was anterior, where this is most readily evident, and I found no swelling posteriorl y. If this does rubber turner to be equivocal where this is coming from and what this is, 3-dimensional imaging of her of her shoulder would be indicated with MRI exam. I will continue to follow her as l heath as we have suspicion of the need for surgical irrigation and debridement of her shoulder. /[id number]/MODL
--- NOTE | 2016-11-04 17:55 | PCMIDPN ---
Assessment/Plan: Assessment: MSSA bacteremia in patient with underlying rheumatoid arthritis and immunosuppressive drugs. Appears to be clinically improved although concerned shifted to the left shoulder. Shoulder appears to have a joint effusion by exam. Will suggest involvement by Orthopedic surgery for aspiration for cell count and culture. In the meantime continue intravenous cefazolin. Plan: 1. Continue IV cefazolin. 2. Aspiration of left shoulder joint and send for cell count as well as culture. 3. Follow up blood cultures and clinical improvement. 11/04/16 17:52 Subjective: Patient is resting in her chair in her hospital room. Family is present in the room. She denies any fevers or chills. Complains significantly of left shoulder pain. Objective: Cefazolin #2 Vital Signs Temp Pulse Resp BP Pulse Ox 37.0 C 86 16 123/67 H 96 11/04/16 15:51 11/04/16 15:51 11/04/16 15:51 11/04/16 15:51 11/04/16 15:51 Microbiology 11/04/16 13:00 Gram Stain - Final Shoulder - Aspirate 11/01/16 17:20 Blood Culture - Final Blood Staphylococcus Aureus 11/01/16 17:10 Blood Culture - Final Blood Staphylococcus Aureus Blood Panel (PCR) - Final S.aureus Methicillin Suscept. 11/01/16 08:02 Urine Culture - Final Urine,Clean Catch Escherichia Coli Two [place] Types Laboratory Results 11/03/16 13:21 11/03/16 13:21 11/03/16 11/04/16 11/05/16 05:59 05:59 05:59 Intake Total 450 600 Output Total 350 Balance 100 600 - Physical Exam General Appearance: WD/WN, alert, no apparent distress, non-toxic, other ( Chronically ill-appearing) Respiratory: lungs clear, normal breath sounds, No respiratory distress Cardiac/Chest: regular rate, rhythm, No tachycardia Extremities: swelling, No non-tender, No normal inspection, No erythema Skin: normal color, warm/dry, No rash Neuro/Psych: alert, normal mood/affect, oriented x 3 ICD10 Worksheet Patient Problems: Problems Problem Status Onset Low back pain Acute Acute pancreatitis Acute Elevated troponin Acute Epistaxis Acute Intertrochanteric fracture of left hip Acute Nausea & vomiting Acute Syncope Acute Syncope Acute
[2016-11-04] MEDS: FOLIC ACID 1 MG TAB PO SCH (17:57)
[2016-11-04] MEDS: CHOLECALCIFEROL VIT D3 1,000 UNITS TAB PO SCH (17:57)
[2016-11-04 20:21] LABS: WBC, SYNOVIAL FLUID 28721 /mm3 (0-150)
[2016-11-04] MEDS: PATCH REMOVAL 1 EA PATCH TD SCH (21:49)
[2016-11-05] MEDS: traMADol 50 MG TAB PO PRN (03:37)
[2016-11-05 05:30] LABS: HEMATOCRIT 31.1 % (38.0-47.0); HEMOGLOBIN 10.6 g/dL (12.6-16.3); MEAN CELL HEMOGLOBIN 29.9 pg (27.9-34.1); MEAN CELL HEMOGLOBIN CONCENTR. 34.1 g/dL (32.4-36.7); MEAN CELL VOLUME 87.6 fL (81.5-99.8); RED BLOOD CELL COUNT 3.55 10^6/uL (4.18-5.33); RED CELL DISTRIBUTION WIDTH 14.5 % (11.5-15.2)
[2016-11-05] MEDS: POLYETHYLENE GLYCOL 3350 17 GM PKT PO SCH ×2 (09:50→23:54)
[2016-11-05] MEDS: SENNOSIDES/DOCUSATE SODIUM TAB PO SCH ×2 (09:50→23:54)
[2016-11-05] MEDS: ACETAMINOPHEN 500 MG TAB PO SCH ×3 (09:51→23:49)
[2016-11-05] MEDS: MULTIVITAMINS 1 EACH TAB PO SCH (09:51)
[2016-11-05] MEDS: RIVASTIGMINE TARTRATE 1.5 MG CAP PO SCH ×2 (09:51→19:13)
[2016-11-05] MEDS: traMADol 50 MG TAB PO SCH ×3 (09:51→19:13)
--- NOTE | 2016-11-05 10:29 | SOAPPROG ---
SOAP Progress Note Assessment/Plan: Assessment:Left shoulder fluid collection likely sterile effusion/bursitis from long standing rotator cuff deficiency. Plan: Continue to treat bacteremia. Await final cultures of shoulder aspirate. No indication for I+D at this time. 11/04/16 12:52 I keren 11/05/16 10:26 Subjective: Still with significant left shoulder pain Objective: Vital Signs Temp Pulse Resp BP Pulse Ox 36.8 C 74 15 176/95 H 94 11/05/16 08:00 11/05/16 08:00 11/05/16 08:00 11/05/16 08:00 11/05/16 08:00 Microbiology 11/04/16 13:00 Gram Stain - Final Shoulder - Aspirate 11/01/16 17:20 Blood Culture - Final Blood Staphylococcus Aureus 11/01/16 17:10 Blood Culture - Final Blood Staphylococcus Aureus Blood Panel (PCR) - Final S.aureus Methicillin Suscept. 11/01/16 08:02 Urine Culture - Final Urine,Clean Catch Escherichia Coli Two [place] Types Laboratory Results 11/05/16 04:53 11/03/16 13:21 11/04/16 11/05/16 11/06/16 05:59 05:59 05:59 Intake Total 600 50 Output Total 250 Balance 600 50 -250 PT 13.9 SEC (12.0-15.0) 11/01/16 17:10 INR 1.08 (0.83-1.16) 11/01/16 17:10 Condition unchanged with maybe slight increase in left shoulder pain. Aspirate cell count not suggestive of infection. Gram stain also negative. ICD10 Worksheet Patient Problems: Problems Problem Status Onset Low back pain Acute Acute pancreatitis Acute Elevated troponin Acute Epistaxis Acute Intertrochanteric fracture of left hip Acute Nausea & vomiting Acute Syncope Acute Syncope Acute
--- NOTE | 2016-11-05 11:16 | HOSPPROG ---
Hospitalist Progress Note Assessment/Plan: Patient is an 89 year old female with rheumatoid arthritis, on methotrexate, mild intermittent asthma, just discharged from [facility] on 10/28 after observation admission for epistaxis. She presented to the ED one day after discharge with acute low back pain radiating into her R hip. CT of the L spine shows no acute pathology, she is being admitted for further evaluation and pain management. 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, L3-L4 # swallowing difficulties per her daughter this has been ongoing ST who didn't see any significant issues w dysphagia # rheumatoid arthritis resumed RA medication #Left shoulder pain appreciate Dr Woods tap, cx sent xray follow cx # mild intermittent asthma stable #Leukocytosis better today #Recent ICH in September f/u CT scan of head showed improvement # recent admission of epistaxis #dvt prophylaxis: LMWH was initiated, patient is very concerned about her recent ICH and recent nose bleed/she prefers not to take this/ is oob frequently , will dc this and cont athrombic pumps # dispo: Pending, needs repeat blood cx that are clear PICC placement Subjective: Tired this morning. Less pain in general. Slept well last night. Objective: Vital Signs Temp Pulse Resp BP Pulse Ox 36.8 C 74 15 176/95 H 94 11/05/16 08:00 11/05/16 08:00 11/05/16 08:00 11/05/16 08:00 11/05/16 08:00 Microbiology 11/04/16 13:00 Gram Stain - Final Shoulder - Aspirate 11/01/16 17:20 Blood Culture - Final Blood Staphylococcus Aureus 11/01/16 17:10 Blood Culture - Final Blood Staphylococcus Aureus Blood Panel (PCR) - Final S.aureus Methicillin Suscept. 11/01/16 08:02 Urine Culture - Final Urine,Clean Catch Escherichia Coli Two [place] Types Laboratory Results 11/05/16 04:53 11/03/16 13:21 11/04/16 11/05/16 11/06/16 05:59 05:59 05:59 Intake Total 600 50 Output Total 250 Balance 600 50 -250 PT 13.9 SEC (12.0-15.0) 11/01/16 17:10 INR 1.08 (0.83-1.16) 11/01/16 17:10 - Physical Exam Constitutional: no apparent distress, chronically ill appearing Eyes: PERRL, anicteric sclera, EOMI Ears, Nose, Mouth, Throat: moist mucous membranes, hearing normal, ears appear normal Cardiovascular: No JVD, No tachycardia, No edema Respiratory: no respiratory distress, no rales or rhonchi, reduced air movement Gastrointestinal: No tenderness, No ascites Skin: warm, normal color Musculoskeletal: joint tenderness, pain with ROM, muscular tenderness Neurologic: AAOx3 Psychiatric: not anxious, not encephalopathic, thought process linear ICD10 Worksheet Patient Problems: Problems Problem Status Onset Nausea & vomiting Acute Acute pancreatitis Acute Intertrochanteric fracture of left hip Acute Syncope Acute Elevated troponin Acute Epistaxis Acute Syncope Acute Low back pain Acute
[2016-11-05] MEDS: CYANO/VITAMIN B12 100 MCG TAB PO SCH (12:20)
[2016-11-05] MEDS: LIDOCAINE 5% 1 EA PATCH TD SCH (12:20)
--- NOTE | 2016-11-05 15:12 | PCMIDPN ---
Assessment/Plan: # immune compromise due to therapy for RA including methotrexate and Remicade # MSSA bacteremia complicated by L septic shoulder. WBC trending down and blood cultures from 11/04/16 are NGTD --cont cefazolin at 1gm IV q8 due to expected renal insufficiency with age --washout per surgery tonight, patient made NPO Medications Cefazolin 1 g IV Q 8, #3 Subjective: disappointed about infection L shoulder Objective: Vital Signs Temp Pulse Resp BP Pulse Ox 36.8 C 74 15 176/95 H 94 11/05/16 08:00 11/05/16 08:00 11/05/16 08:00 11/05/16 08:00 11/05/16 08:00 Microbiology 11/04/16 13:00 Gram Stain - Final Shoulder - Aspirate 11/01/16 17:20 Blood Culture - Final Blood Staphylococcus Aureus 11/01/16 17:10 Blood Culture - Final Blood Staphylococcus Aureus Blood Panel (PCR) - Final S.aureus Methicillin Suscept. 11/01/16 08:02 Urine Culture - Final Urine,Clean Catch Escherichia Coli Two [place] Types Laboratory Results 11/05/16 04:53 11/03/16 13:21 11/04/16 11/05/16 11/06/16 05:59 05:59 05:59 Intake Total 600 50 Output Total 250 Balance 600 50 -250 - Physical Exam General Appearance: alert, no apparent distress, thin EENT: dry mucous membranes Respiratory: lungs clear, No accessory muscle use Cardiac/Chest: regular rate, rhythm Extremities: swelling (L shoulder), other (L shoulder tender) Skin: No rash Neuro/Psych: alert, normal mood/affect, oriented x 3 - Time Spent With Patient Time Spent with Patient: greater than 35 minutes (updated family and patient regarding need for washout; care coordinated with Morenita Lopez NP) Time Spent with Patient: Greater than 35 minutes spent on this patients care, greater than 50% of time spent counseling, educating, and coordinating care regarding the above mentioned plan. ICD10 Worksheet Patient Problems: Problems Problem Status Onset Low back pain Acute Acute pancreatitis Acute Elevated troponin Acute Epistaxis Acute Intertrochanteric fracture of left hip Acute Nausea & vomiting Acute Syncope Acute Syncope Acute
--- NOTE | 2016-11-05 18:58 | SOAPPROG ---
SOAP Progress Note Assessment/Plan: Assessment:Septic arthritis left shoulder Plan: To OR urgently for arthroscopic washout. D/W son who has signed consent for surgery. 11/04/16 12:52 I keren 11/05/16 10:26 11/05/16 18:56 Objective: Vital Signs Temp Pulse Resp BP Pulse Ox 36.8 C 76 15 134/71 H 94 11/05/16 15:49 11/05/16 15:49 11/05/16 15:49 11/05/16 15:49 11/05/16 15:49 Microbiology 11/04/16 13:00 Gram Stain - Final Shoulder - Aspirate Laboratory Results 11/05/16 04:53 11/03/16 13:21 11/04/16 11/05/16 11/06/16 05:59 05:59 05:59 Intake Total 600 50 700 Output Total 250 Balance 600 50 450 PT 13.9 SEC (12.0-15.0) 11/01/16 17:10 INR 1.08 (0.83-1.16) 11/01/16 17:10 Culture from Left shoulder aspirate is positive for staph. ICD10 Worksheet Patient Problems: Problems Problem Status Onset Low back pain Acute Acute pancreatitis Acute Elevated troponin Acute Epistaxis Acute Intertrochanteric fracture of left hip Acute Nausea & vomiting Acute Syncope Acute Syncope Acute
[2016-11-05] MEDS: CHOLECALCIFEROL VIT D3 1,000 UNITS TAB PO SCH (19:13)
[2016-11-05] MEDS: FOLIC ACID 1 MG TAB PO SCH (19:13)
[2016-11-05] MEDS ORDERED: HYDROmorphONE/DILAUDID 1 MG/ML SYR ONE (19:32)
[2016-11-05] MEDS ORDERED: LIDOCAINE 2% 5 ML SDV ONE (21:32)
[2016-11-05] MEDS ORDERED: PROPOFOL 200 MG/20 ML VIAL ONE (21:32)
[2016-11-05] MEDS ORDERED: fentaNYL 100 MCG/2 ML INJ ONE ×2 (21:32→22:27)
[2016-11-05] MEDS ORDERED: LIDOCAINE 2% JELLY 5 ML TUBE ONE (21:33)
[2016-11-05] MEDS ORDERED: ONDANSETRON 4 MG/2 ML VIAL ONE (21:33)
[2016-11-05] MEDS ORDERED: PHENYLEPHRINE HCL 100 MCG/ML SYR ONE (22:01)
[2016-11-05] MEDS ORDERED: BUPIVACAINE/EPI 0.25% 30 ML SDV ONE (22:09)
--- NOTE | 2016-11-05 22:51 | POSTOPPROG ---
Post Op Note Date of Operation: 11/05/16 Surgeon: Bhaskar Woods Anesthesiologist: eugenio Anesthesia: LMA Pre-op Diagnosis: Septic left shoulder Post-op Diagnosis: Same + Biceps tendonitis Procedure: Arthroscopic debridement extensive Inf/Abcess present in the surg proc area at time of surgery?: Yes Depth: Organ Space EBL: Minimal Complications: None
[2016-11-05] MEDS: PATCH REMOVAL 1 EA PATCH TD SCH (23:54)
[2016-11-06] MEDS: traMADol 50 MG TAB PO PRN (02:57)
--- NOTE | 2016-11-06 05:31 | GOP ---
[f rep st] OPERATIVE REPORT DATE OF OPERATION: 11/05/2016 SURGEON: Bhaskar Woods MD PREOPERATIVE DIAGNOSIS: Septic left shoulder. POSTOPERATIVE DIAGNOSIS: 1. Septic left shoulder. 2. Severe biceps tenosynovitis. PROCEDURE PERFORMED: FINDINGS: Fairly significant left shoulder effusion was evident. There was marked fraying of the i ntra-articular portion of the biceps tendon. I sectioned I performed a tenotomy of this and then sm oothed the edges. I irrigated the glenohumeral joint as well as subacromial space with a total of 1 2 L of normal saline. INDICATIONS: The patient is an 89-year-old woman, who has been hospitalized for Staph bacteremia an d subsequently had a painful swollen left shoulder that I aspirated yesterday. The cell count was n ot indicative of an infection, however, this did grow Staphylococcus aureus and culture. She is con sequently brought to the operating room for urgent I and D procedure. DESCRIPTION OF PROCEDURE: After routinely checking the patient's identification, consent and the herrera ccessful induction of LMA general anesthetic,the patient was positioned in the [place] chair si tting position. The left upper quadrant was now prepped and draped in usual standard fashion. Bony landmarks were marked on the skin. A surgical time-out was completed. I infiltrated the glenohume ral joint and subacromial space each with 10 cc total of 0.25% Marcaine with epinephrine. I then in troduced the arthroscope and carried this sharply through skin and then bluntly into the glenohumera l joint. A spinal needle was used to assess an appropriate intraportal trajectory and this was haile ied sharply through skin, and then a 5.0 mm resector was brought in through the anterior portal. Ro utine systematic exploration of the glenohumeral joint was undertaken. She had moderate arthritic c hanges of the humeral head and glenoid that are age-appropriate. There were no areas of full-thickn ess cartilage loss. There was moderate intra-articular synovitis. I debrided this with a shaver. The biceps tendon was visualized and there was marked fraying of the biceps tendon from its origin a ll the way through its exit. I used a pair of [place] scissors via the anterior portal the biceps tendon. I then debrided the visible stump of this. I also debrided the distal edge of this while it was still intra-articular. I straightened the elbow and pulled the rest of this out of the glenohumeral joint. Rotator cuff insertion was grossly normal with the exception of extreme anteri or were the subscapularis and supraspinatus were frayed right around the biceps exit at the rotator interval. I then placed the scope in the subacromial space, and via the anterior portal performed a very minimal subacromial bursectomy. I irrigated both areas with approximately 6 L of normal salin e with the arthroscope. All arthroscopic instruments were removed and the portals were closed with simple sutures of 4-0 Prolene followed by application of a sterile bulky dressing. The patient was reversed from anesthetic and extubated in the operating room. She was transferred to the recovery r [facility] in excellent condition. She tolerated the procedure well. There were no complications. PROCEDURE PERFORMED: Arthroscopic debridement including tenotomy of long head biceps tendon. /[id number]/MODL
[2016-11-06 07:39] VITALS: PULSE 78; RESP 15; TEMP 97.7
[2016-11-06] MEDS: LIDOCAINE 5% 1 EA PATCH TD SCH (08:20)
[2016-11-06] MEDS: MULTIVITAMINS 1 EACH TAB PO SCH (08:22)
[2016-11-06] MEDS: traMADol 50 MG TAB PO SCH ×2 (08:22→12:34)
[2016-11-06] MEDS: SENNOSIDES/DOCUSATE SODIUM TAB PO SCH (08:23)
[2016-11-06] MEDS: ACETAMINOPHEN 500 MG TAB PO SCH (08:23)
[2016-11-06] MEDS: POLYETHYLENE GLYCOL 3350 17 GM PKT PO SCH (08:24)
[2016-11-06] MEDS: RIVASTIGMINE TARTRATE 1.5 MG CAP PO SCH (08:24)
--- NOTE | 2016-11-06 08:30 | HOSPPROG ---
Hospitalist Progress Note Assessment/Plan: Patient is an 89 year old female with rheumatoid arthritis, on methotrexate, mild intermittent asthma, just discharged from [facility] on 10/28 after observation admission for epistaxis. She presented to the ED one day after discharge with acute low back pain radiating into her R hip. CT of the L spine shows no acute pathology, she is being admitted for further evaluation and pain management. 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, L3-L4 # swallowing difficulties per her daughter this has been ongoing reviewed her care w who didn't see any significant issues w dysphagia # rheumatoid arthritis resumed RA medication # mild intermittent asthma stable #Recent ICH in September f/u CT scan of head showed improvement # recent admission of epistaxis #dvt prophylaxis: LMWH was initiated, patient is very concerned about her recent ICH and recent nose bleed/she prefers not to take this/ is oob frequently , will dc this and cont athrombic pumps # dispo: later today or tomorrow morning/ reviewed her care w Dr Quinonez/ PICC to be placed today. Subjective: Angely is not c/o pain. Objective: Vital Signs Temp Pulse Resp BP Pulse Ox 36.5 C 78 15 153/66 H 94 11/06/16 07:39 11/06/16 07:39 11/06/16 07:39 11/06/16 07:39 11/06/16 07:39 Microbiology 11/04/16 13:00 Gram Stain - Final Shoulder - Aspirate Laboratory Results 11/05/16 04:53 11/03/16 13:21 11/05/16 11/06/16 11/07/16 05:59 05:59 05:59 Intake Total 50 1350 Output Total 530 Balance 50 820 PT 13.9 SEC (12.0-15.0) 11/01/16 17:10 INR 1.08 (0.83-1.16) 11/01/16 17:10 - Physical Exam Constitutional: chronically ill appearing Eyes: PERRL Ears, Nose, Mouth, Throat: hearing normal Cardiovascular: regular rate and rhythym Respiratory: no respiratory distress Gastrointestinal: normoactive bowel sounds Skin: warm, other (left shoulder w dressing in place) Musculoskeletal: generalized weakness Neurologic: AAOx3 Psychiatric: interacting appropriately, flat affect ICD10 Worksheet Patient Problems: Problems Problem Status Onset Low back pain Acute Acute pancreatitis Acute Elevated troponin Acute Epistaxis Acute Intertrochanteric fracture of left hip Acute Nausea & vomiting Acute Syncope Acute Syncope Acute
--- NOTE | 2016-11-06 09:05 | SOAPPROG ---
SOAP Progress Note Assessment/Plan: Assessment/Plan: s/p left shoulder arthroscopy and debridement for a septic shoulder POD#1 - Continue pain management - Ice to the affected area - Continue PT/OT - Continue IV antibiotics per ID - Foot pumps for mechanical prophylaxi 11/06/16 09:03 11/06/16 09:06 Subjective: Pt states her left shoulder is feeling slightly better s/p arthroscopy last night. Pain is about a 6/10 and she is having trouble with ROM. Pt is eating well and has been OOB. Pt denies fever, chills, chest pain, SOB, abdominal pain , N/V/D, numbness, tingling, calf pain. Objective: Vital Signs Temp Pulse Resp BP Pulse Ox 36.5 C 78 15 153/66 H 94 11/06/16 07:39 11/06/16 07:39 11/06/16 07:39 11/06/16 07:39 11/06/16 07:39 Microbiology 11/04/16 13:00 Gram Stain - Final Shoulder - Aspirate Laboratory Results 11/05/16 04:53 11/03/16 13:21 11/05/16 11/06/16 11/07/16 05:59 05:59 05:59 Intake Total 50 1350 Output Total 530 Balance 50 820 PT 13.9 SEC (12.0-15.0) 11/01/16 17:10 INR 1.08 (0.83-1.16) 11/01/16 17:10 Physical Exam - Physical Exam General Appearance: alert, no apparent distress Skin: normal color, warm/dry, other (Incision site c/d/i without surrounding erythema or calor) Extremities: non-tender, normal inspection, normal capillary refill, other ( Very limited left shoulder ROM secondary to pain. FROM of left elbow, wrist and hand), No pedal edema, No calf tenderness, No swelling, No Jaron's sign Neuro/Psych: no motor/sensory deficits, alert, normal mood/affect ICD10 Worksheet Patient Problems: Problems Problem Status Onset Low back pain Acute Acute pancreatitis Acute Elevated troponin Acute Epistaxis Acute Intertrochanteric fracture of left hip Acute Nausea & vomiting Acute Syncope Acute Syncope Acute
[2016-11-06] MEDS ORDERED: ALTEPLASE 2 MG VIAL IVP PRN (09:22)
--- NOTE | 2016-11-06 09:48 | PCMIDPN ---
Assessment/Plan: # immune compromise due to therapy for RA including methotrexate and Remicade # MSSA bacteremia complicated by L septic shoulder and Biceps tendonitis. Blood cultures from 11/04/16 are NGTD. no new labs today --cont cefazolin at 1gm IV q8 due to expected renal insufficiency with age --4 weeks IV cefazolin, 12/02 stop date --F/u ID 11/14 at 1330 Medications Cefazolin 1 g IV Q 8, #[address] Woods and Stephanie Singer [employer] Subjective: L shoulder still painful downtrodden today Objective: Vital Signs Temp Pulse Resp BP Pulse Ox 36.5 C 78 15 153/66 H 94 11/06/16 07:39 11/06/16 07:39 11/06/16 07:39 11/06/16 07:39 11/06/16 07:39 Microbiology 11/04/16 13:00 Gram Stain - Final Shoulder - Aspirate Laboratory Results 11/05/16 04:53 11/03/16 13:21 11/05/16 11/06/16 11/07/16 05:59 05:59 05:59 Intake Total 50 1350 Output Total 530 Balance 50 820 - Physical Exam General Appearance: alert, no apparent distress, thin EENT: pale conjunctiva Respiratory: chest non-tender Cardiac/Chest: regular rate, rhythm Extremities: other (dressing in place L shoulder, no drain) Abdomen: non-tender, soft Skin: No rash Neuro/Psych: alert, normal mood/affect, oriented x 3 ICD10 Worksheet Patient Problems: Problems Problem Status Onset Low back pain Acute Acute pancreatitis Acute Elevated troponin Acute Epistaxis Acute Intertrochanteric fracture of left hip Acute Nausea & vomiting Acute Syncope Acute Syncope Acute
--- NOTE | 2016-11-06 09:51 | PDIAF ---
- Diagnosis Diagnosis: MSSA bacteremia & L shoulder septic arthritis Code Status: Do Not Resuscitate - Medication Management Discharge Medications: Medications to Continue on Transfer Acetaminophen [Tylenol 325mg (*)] 325 mg PO DAILY PRN 10/29/16 [Last Taken Unknown] Albuterol [Proventil Inhaler HFA (*)] 1 - 2 puffs IH Q4H PRN 10/29/16 [Last Taken Unknown] Cholecalciferol Vit D3 [Vitamin D3 (*)] 2,000 units PO DAILY 10/29/16 [Last Taken Unknown] Clobetasol Propionate 59 ml TP BID PRN 10/29/16 [Last Taken Unknown] Cyanocobalamin [Vitamin B12 (*)] 500 mcg PO DAILY 10/29/16 [Last Taken Unknown] Docusate Sodium [Colace Clear] 50 mg PO DAILY PRN 10/29/16 [Last Taken Unknown] FOLIC ACID 0.8 mg PO DAILY 10/29/16 [Last Taken Unknown] Methotrexate Sodium [Rheumatrex] 12.5 mg PO PRECIADO@0900 10/29/16 [Last Taken Unknown ] Multivitamins [Multivitamin (*)] 1 each PO DAILY 10/29/16 [Last Taken Unknown] Ondansetron Odt [Zofran Odt 4 mg (*)] 4 mg PO BID PRN 10/29/16 [Last Taken Unknown] Propylene Glycol/Peg 400/Pf [Systane 0.3-0.4% Eye Drops] 1 each OP DAILY PRN [Last Taken Unknown] Rivastigmine Tartrate [Rivastigmine] 6 mg PO BID 10/29/16 [Last Taken Unknown] Simethicone [Gas-X] 125 mg PO Q6H PRN 10/29/16 [Last Taken Unknown] inFLIXimab [Remicade Inj 100 mg (*)] 100 mg IV .[id number] 10/29/16 [Last Taken 12/21] traMADol [Ultram 50 mg (*)] 50 mg PO TID 10/29/16 [Last Taken Unknown] Mcfp Antibiotics: cefazolin 1gm IV q8hr [employer] Antibiotic Stop Date: 12/02/16 Discharge Medications: Refer to the Discharge Home Medication list for PRN reason. PICC Care - Routine: Yes - Orders Diet Texture: Regular Texture Diet, Thin Liquids - Labs/Radiology CBC Date: 11/11/16 CMP Date: 11/11/16 CRP Date: 11/11/16 Call or Fax Lab and Imaging Results to: zita quinonez [phone] - Follow Up Care Current Providers and Referrals: Marietta Hdez MD [Primary Care Provider] - As per Instructions Zita Quinonez MD [Medical Doctor] - 11/14/16 1:30 pm
--- NOTE | 2016-11-06 10:31 | PDIAF ---
- Diagnosis Diagnosis: MSSA bacteremia & L shoulder septic arthritis Code Status: Do Not Resuscitate - Medication Management Discharge Medications: Medications to Continue on Transfer Acetaminophen [Tylenol 325mg (*)] 325 mg PO DAILY PRN 10/29/16 [Last Taken Unknown] Albuterol [Proventil Inhaler HFA (*)] 1 - 2 puffs IH Q4H PRN 10/29/16 [Last Taken Unknown] Cholecalciferol Vit D3 [Vitamin D3 (*)] 2,000 units PO DAILY 10/29/16 [Last Taken Unknown] Clobetasol Propionate 59 ml TP BID PRN 10/29/16 [Last Taken Unknown] Cyanocobalamin [Vitamin B12 (*)] 500 mcg PO DAILY 10/29/16 [Last Taken Unknown] Docusate Sodium [Colace Clear] 50 mg PO DAILY PRN 10/29/16 [Last Taken Unknown] FOLIC ACID 0.8 mg PO DAILY 10/29/16 [Last Taken Unknown] Methotrexate Sodium [Rheumatrex] 12.5 mg PO PRECIADO@0900 10/29/16 [Last Taken Unknown ] Multivitamins [Multivitamin (*)] 1 each PO DAILY 10/29/16 [Last Taken Unknown] Ondansetron Odt [Zofran Odt 4 mg (*)] 4 mg PO BID PRN 10/29/16 [Last Taken Unknown] Propylene Glycol/Peg 400/Pf [Systane 0.3-0.4% Eye Drops] 1 each OP DAILY PRN [Last Taken Unknown] Rivastigmine Tartrate [Rivastigmine] 6 mg PO BID 10/29/16 [Last Taken Unknown] Simethicone [GAS-X] 125 mg PO Q6H PRN 10/29/16 [Last Taken Unknown] inFLIXimab [Remicade Inj 100 mg (*)] 100 mg IV .[id number] 10/29/16 [Last Taken 12/21] traMADol [Ultram 50 mg (*)] 50 mg PO TID 10/29/16 [Last Taken Unknown] Acetaminophen [Tylenol ES 500 mg (*)] 1,000 mg PO TID tab 11/06/16 [Last Taken Unknown] Cyclobenzaprine [Flexeril 10 MG (*)] 10 mg PO TID PRN #0 tab 11/06/16 [Last Taken Unknown] Lidocaine 5% [Lidoderm 5% Patch (*)] 1 ea TD DAILY patch 11/06/16 [Last Taken Unknown] Patch Removal 1 ea TD DAILY21 patch 11/06/16 [Last Taken Unknown] Polyethylene Glycol 3350 [Miralax 17 gm (*)] 17 gm PO BID pkt 11/06/16 [Last Taken Unknown] Sennosides/Docusate Sodium [Senokot-S] 1 - 2 tab PO BID tab 11/06/16 [Last Taken Unknown] traMADol [Ultram 50 mg (*)] 50 mg PO Q6HRS PRN #0 tab 11/06/16 [Last Taken Unknown] [employer] Antibiotics: cefazolin 1gm IV q8hr Residential Antibiotic Stop Date: 12/02/16 Discharge Medications: Refer to the Discharge Home Medication list for PRN reason. PICC Care - Routine: Yes - Orders Services needed: Physical Therapy, Occupational Therapy Diet Texture: Regular Texture Diet, Thin Liquids - Labs/Radiology CBC Date: 11/11/16 CMP Date: 11/11/16 CRP Date: 11/11/16 Call or Fax Lab and Imaging Results to: zita quinonez [phone] - Follow Up Care Current Providers and Referrals: Marietta Hdez MD [Primary Care Provider] - As per Instructions Zita Quinonez MD [Medical Doctor] - 11/14/16 1:30 pm
[2016-11-06 12:00] VITALS: BP 128/68; O2SAT 93
[2016-11-06] MEDS: CYANO/VITAMIN B12 100 MCG TAB PO SCH (12:35)
--- NOTE | 2016-11-06 13:14 | GDS ---
[f rep st] DISCHARGE SUMMARY DISCHARGE DIAGNOSES: 1. MSSA bacteremia. 2. Left septic shoulder. 3. Immunocompromised patient secondary from medications for rheumatoid arthritis. 4. Systemic inflammatory response syndrome. 5. Thrombocytopenia. 6. Acute right hip, low back pain. 7. Swallowing difficulty. 8. Rheumatoid arthritis. 9. Mild intermittent asthma. 10. Recent intracranial hemorrhage in September. 11. Recent admission for epistaxis. CONSULTATIONS DURING STAY: 1. Dr. Zita Quinonez. 2. Dr. Bhaskar Woods. HISTORY OF PRESENT ILLNESS: The patient is an 89-year-old woman with rheumatoid arthritis who presented to the emergency room with severe back pain. Prior to this admission, she had been admitted for epistaxis and was discharged home. While in the hospital, she developed a temperature of 38.6 on November 01. At that time blood cultures were checked, which grew out Staphylococcus aureus in less than 24 hours. Out of concern that she had severe back pain, she underwent a pelvic MRI and lumbar MRI with contrast that did not show any type of etiology of her infection. She was also complaining of significant left shoulder pain. She was seen and evaluated by Dr. Bhaskar Woods. He aspirated her shoulder. This also grew out Staphylococcus aureus. Today, [facility]. HOSPITAL COURSE PER PROBLEM: 1. MSSA bacteremia complicated by a left septic shoulder. The bacteremia possibly could be related to the recent epistaxis. She had a second set of blood cultures that showed no growth. She will be treated with cefazolin. 2. Left septic shoulder. She is status post washout of this yesterday. The culture from the shoulder shows Staph aureus. 3. Immunocompromised. This impacted the above. 4. SIRS, resolved. 5. Thrombocytopenia due to acute illness. 6. Acute right hip, low back pain. 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 She overall has been well managed with tramadol and scheduled Tylenol. Have avoided using any type of anti-inflammatories due to recent epistaxis and her intracranial hemorrhage. 7. Swallowing difficulty. This has been ongoing. Speech Therapy did not see any significant issues with dysphagia. 8. RA. Home medications resumed. 9. Mild intermittent asthma. Stable. 10. Recent ICH in September. Followup CT scan of her head showed improvement. PENDING LABS: Preliminary blood cultures show no growth. CONDITION AT DISCHARGE: Stable. Blood pressure is 126/68, heart rate 78, respiratory rate is 15, O2 saturation on room air 92%, temperature 36.5 Celsius. MEDICATIONS AT DISCHARGE: Please see the EMR. DISCHARGE INSTRUCTIONS: 1. To follow up with Dr. Zita Quinonez. An appointment has been scheduled. 2. If she develops any fever, chills, chest pain, or shortness of breath, return to the ER. Greater than 35 minutes discharging and coordinating care. /[id number]/MODL MTDD
[2016-11-06] MEDS: BISACODYL 10 MG SUPP PR PRN (14:12)
== END 2016-11-06 15:37 | DRG 501 ==
LOC: EDUNIT# → F3N 22:25 → OBSVTOIN 10-30 15:21
PROVIDERS: ADMIT Family Medicine; ATTEND Internal Medicine
PROC: 0R9K3ZX Drainage of Left Shoulder Joint, Percutaneous Approach, Diagnostic (ICD-10-PCS; 2016-11-04)
PROC: 0MB24ZZ Excision of Left Shoulder Bursa and Ligament, Percutaneous Endoscopic Approach (ICD-10-PCS; principal; 2016-11-05 18:15)
PROC: 0RBK4ZZ Excision of Left Shoulder Joint, Percutaneous Endoscopic Approach (ICD-10-PCS; principal; 2016-11-05 18:15)
PROC: 0LB24ZZ Excision of Left Shoulder Tendon, Percutaneous Endoscopic Approach (ICD-10-PCS; principal; 2016-11-05 18:15)
PROC: 02HV33Z Insertion of Infusion Device into Superior Vena Cava, Percutaneous Approach (ICD-10-PCS; 2016-11-06)
DX: M25.551 Pain in right hip (principal); M54.5 Low back pain; M00.812 Arthritis due to other bacteria, left shoulder; R78.81 Bacteremia; B95.61 Methicillin susceptible Staphylococcus aureus infection as the cause of diseases classified elsewhere; M75.22 Bicipital tendinitis, left shoulder; D69.6 Thrombocytopenia, unspecified; M06.9 Rheumatoid arthritis, unspecified; M48.06 Spinal stenosis, lumbar region; J45.909 Unspecified asthma, uncomplicated; F32.9 Major depressive disorder, single episode, unspecified; R13.10 Dysphagia, unspecified; Z96.642 Presence of left artificial hip joint; Z96.651 Presence of right artificial knee joint; Z79.899 Other long term (current) drug therapy
CPT/HCPCS: 92526-GN; 92610-GN; 96374; 97116-GP; 97161-GP; 97165-GO; 97530-GP; 97535-GO; A9585; C1751; G0378; G8978-GP-CJ; G8979-GP-CI; G8987-GO-CI; G8987-GO-CJ; G8988-GO-CI; G8989-GO-CJ; G8996-GN-CI; G8996-GN-CJ; G8997-GN-CI; G8998-GN-CI; J0690; J1170; J1650; J1885; J2370; J2405; J2704; J3010